=== PATIENT | female | born 1935 | race Caucasian/White ===

== ENCOUNTER 2016-12-25 08:15 | Outpatient (CLI) | payer MEDICARE, OTHER | END 2016-12-25 08:16 | disposition home or self-care (01) | DX: I48.92 Unspecified atrial flutter (principal); R06.00 Dyspnea, unspecified; Z95.4 Presence of other heart-valve replacement; E78.5 Hyperlipidemia, unspecified; N18.9 Chronic kidney disease, unspecified; I12.9 Hypertensive chronic kidney disease with stage 1 through stage 4 chronic kidney disease, or unspecified chronic kidney disease; R07.89 Other chest pain; Z79.01 Long term (current) use of anticoagulants ==

== ENCOUNTER 2017-01-21 12:19 | Emergency (ER) | payer MEDICARE, OTHER ==
[2017-01-21] MEDS ORDERED: DEXAMETHASONE 10 MG/ML VIAL PO STA (13:09)
[2017-01-21] MEDS ORDERED: ALBUTEROL NEB 2.5 MG/3 ML INH STA (13:09)
[2017-01-21] MEDS ORDERED: ALBUTEROL NEB 2.5 MG/3 ML INH ONE (13:18)
[2017-01-21] MEDS ORDERED: CHERRY SYRUP 10 ML UDC PO ONE (13:30)
[2017-01-21] MEDS ORDERED: DEXAMETHASONE 10 MG/ML VIAL ONE (13:30)
[2017-01-21] MEDS ORDERED: CEPHALEXIN 250 MG CAPSULE PO STA (14:07)
[2017-01-21] MEDS ORDERED: CEPHALEXIN 250 MG CAPSULE PO ONE (14:10)
== END 2017-01-21 14:30 | disposition home or self-care (01) ==
DX: J18.9 Pneumonia, unspecified organism (principal); R04.2 Hemoptysis; I10 Essential (primary) hypertension; I48.91 Unspecified atrial fibrillation; I48.92 Unspecified atrial flutter; Z79.01 Long term (current) use of anticoagulants; R01.1 Cardiac murmur, unspecified; Z95.2 Presence of prosthetic heart valve; E78.00 Pure hypercholesterolemia, unspecified; E03.9 Hypothyroidism, unspecified; G47.30 Sleep apnea, unspecified; Z86.73 Personal history of transient ischemic attack (TIA), and cerebral infarction without residual deficits; Z79.82 Long term (current) use of aspirin
CPT/HCPCS: 36415; 71020; 80053; 81001; 83690; 83735; 83880; 85025; 85610; 93005; 93010; 94640; 99283; 99284; A9270; J7613

== ENCOUNTER 2017-02-03 15:26 | Inpatient (IN) | payer MEDICARE, OTHER ==
[2017-02-03] MEDS ORDERED: IOPAMIDOL-300 100 ML VIAL IVP ONE (16:45)
[2017-02-03] MEDS ORDERED: ERTAPENEM 1 GM in SODIUM CHLORIDE 0.9% MINIBAG 100 ML IV STA (17:18)
[2017-02-03] MEDS ORDERED: MORPHINE 2 MG/ML SYRINGE IVP STA (17:41)
[2017-02-03] MEDS ORDERED: MORPHINE 2 MG/ML SYRINGE ONE (17:43)
[2017-02-03] MEDS ORDERED: MORPHINE 2 MG/ML SYRINGE IVP PRN ×2 (17:52→19:59)
[2017-02-03] MEDS ORDERED: ONDANSETRON ODT 4 MG TABLET TL PRN (17:52)
[2017-02-03] MEDS ORDERED: BENZONATATE 100 MG CAPSULE PO PRN (18:04)
[2017-02-03] MEDS ORDERED: ACETAMINOPHEN 650 MG SUPP PR PRN (18:50)
[2017-02-03] MEDS: PANTOPRAZOLE 40 MG VIAL IVP SCH (19:04)
[2017-02-03] MEDS ORDERED: KETOROLAC 30 MG/ML VIAL IVP PRN (19:58)
[2017-02-03] MEDS: methylPREDNISolone SUCCINATE 40 MG/ML VIAL IVP SCH (21:12)
[2017-02-03] MEDS: LATANOPROST 0.005% OPHTH DROPS LEFTEYE SCH (21:13)
[2017-02-03] MEDS: SODIUM CHLORIDE FLUSH 0.9% 10 ML SYRINGE IVP SCH (21:13)
[2017-02-03] MEDS: SOTALOL 80 MG TABLET PO SCH (21:13)
[2017-02-03] MEDS: ACETAMINOPHEN 325 MG TABLET PO PRN (21:14)
[2017-02-04] MEDS ORDERED: SODIUM CHLORIDE 0.9% 500 ML IV ONE (00:27)
[2017-02-04] MEDS ORDERED: SODIUM CHLORIDE 0.9% 500 ML IV SCH ×2 (00:50→21:52)
[2017-02-04] MEDS ORDERED: SODIUM CHLORIDE 0.9% 1,000 ML IV SCH (01:00)
[2017-02-04] MEDS: SODIUM CHLORIDE FLUSH 0.9% 10 ML SYRINGE IVP SCH ×3 (06:36→21:03)
[2017-02-04] MEDS: PANTOPRAZOLE 40 MG VIAL IVP SCH ×2 (06:37→15:24)
[2017-02-04] MEDS ORDERED: MORPHINE 2 MG/ML SYRINGE IVP PRN (07:42)
[2017-02-04] MEDS ORDERED: KETOROLAC 15 MG/ML VIAL IVP PRN (07:47)
[2017-02-04] MEDS: methylPREDNISolone SUCCINATE 40 MG/ML VIAL IVP SCH ×2 (08:56→21:11)
[2017-02-04] MEDS: SOTALOL 80 MG TABLET PO SCH (09:00)
[2017-02-04] MEDS: LEVOTHYROXINE 25 MCG TABLET PO SCH (09:00)
[2017-02-04] MEDS: MULTIVITAMIN TABLET PO SCH (09:00)
[2017-02-04] MEDS: POLYETHYLENE GLYCOL 3350 17 GM PACKET PO SCH (09:00)
[2017-02-04] MEDS ORDERED: TORSEMIDE 20 MG TABLET PO SCH (09:00)
[2017-02-04] MEDS ORDERED: MAGNESIUM ORAL SCH (09:00)
[2017-02-04] MEDS ORDERED: PANTOPRAZOLE 40 MG TABLET PO SCH (09:00)
[2017-02-04] MEDS: ASPIRIN EC 81 MG TABLET PO SCH (09:00)
[2017-02-04] MEDS: SODIUM CHLORIDE 0.45% 1,000 ML IV SCH ×2 (09:01→21:28)
[2017-02-04] MEDS: TORSEMIDE 20 MG TABLET PO SCH (09:34)
[2017-02-04] MEDS ORDERED: WARFARIN 2.5 MG TABLET PO SCH (14:00)
[2017-02-04] MEDS: WARFARIN 1 MG TABLET PO SCH (15:23)
[2017-02-04] MEDS: ERTAPENEM 1 GM in SODIUM CHLORIDE 0.9% MINIBAG 100 ML IV SCH (17:24)
[2017-02-04] MEDS ORDERED: SOTALOL 80 MG TABLET PO SCH (21:00)
[2017-02-04] MEDS: LATANOPROST 0.005% OPHTH DROPS LEFTEYE SCH (21:15)
[2017-02-05] MEDS ORDERED: guaiFENesin 600 MG TABLET PO PRN (01:29)
[2017-02-05] MEDS: ACETAMINOPHEN 325 MG TABLET PO PRN ×2 (01:42→19:17)
[2017-02-05] MEDS: PANTOPRAZOLE 40 MG VIAL IVP SCH ×2 (06:05→17:44)
[2017-02-05] MEDS: SODIUM CHLORIDE FLUSH 0.9% 10 ML SYRINGE IVP SCH ×3 (06:05→22:25)
[2017-02-05] MEDS ORDERED: SOTALOL 80 MG TABLET PO SCH ×2 (07:09→07:10)
[2017-02-05] MEDS: MULTIVITAMIN TABLET PO SCH (09:04)
[2017-02-05] MEDS: LEVOTHYROXINE 25 MCG TABLET PO SCH (09:04)
[2017-02-05] MEDS: TORSEMIDE 20 MG TABLET PO SCH (09:04)
[2017-02-05] MEDS: ASPIRIN EC 81 MG TABLET PO SCH (09:04)
[2017-02-05] MEDS: methylPREDNISolone SUCCINATE 40 MG/ML VIAL IVP SCH ×2 (09:05→21:15)
[2017-02-05] MEDS: POLYETHYLENE GLYCOL 3350 17 GM PACKET PO SCH (09:05)
[2017-02-05] MEDS: SODIUM CHLORIDE 0.45% 1,000 ML IV SCH (09:14)
[2017-02-05] MEDS ORDERED: CARBOXYMETHYLCELLULOSE OPHTH DROPS EACHEYE PRN (10:30)
[2017-02-05] MEDS: CYANOCOBALAMIN 500 MCG TABLET PO SCH (10:59)
[2017-02-05] MEDS: CALCIUM CARBONATE CHEW 500 MG TABLET PO SCH ×2 (10:59→21:15)
[2017-02-05] MEDS: CHOLECALCIFEROL 5,000 UNIT CAPSULE PO SCH (10:59)
[2017-02-05] MEDS: POTASSIUM CHLORIDE 20 MEQ TABLET PO SCH ×2 (11:04→17:44)
[2017-02-05] MEDS ORDERED: WARFARIN 1 MG TABLET PO SCH ×2 (14:00)
[2017-02-05] MEDS: WARFARIN 1 MG TABLET PO SCH (14:18)
[2017-02-05] MEDS: ERTAPENEM 1 GM in SODIUM CHLORIDE 0.9% MINIBAG 100 ML IV SCH (17:44)
[2017-02-05] MEDS: SODIUM CHLORIDE FLUSH 0.9% 10 ML SYRINGE IVP PRN ×2 (17:44→21:15)
[2017-02-05] MEDS: LATANOPROST 0.005% OPHTH DROPS LEFTEYE SCH (21:15)
[2017-02-05] MEDS: SOTALOL 80 MG TABLET PO SCH (21:15)
[2017-02-06] MEDS: SODIUM CHLORIDE FLUSH 0.9% 10 ML SYRINGE IVP SCH ×2 (06:09→14:21)
[2017-02-06] MEDS: PANTOPRAZOLE 40 MG VIAL IVP SCH (06:10)
[2017-02-06] MEDS ORDERED: LEVOTHYROXINE 25 MCG TABLET PO SCH (07:00)
[2017-02-06] MEDS ORDERED: TORSEMIDE 20 MG TABLET PO SCH (09:00)
[2017-02-06] MEDS ORDERED: SODIUM CHLORIDE 0.45% 1,000 ML IV SCH (09:00)
[2017-02-06] MEDS ORDERED: predniSONE 20 MG TABLET PO SCH (09:00)
[2017-02-06] MEDS: ASPIRIN EC 81 MG TABLET PO SCH (09:27)
[2017-02-06] MEDS: CALCIUM CARBONATE CHEW 500 MG TABLET PO SCH (09:27)
[2017-02-06] MEDS: POTASSIUM CHLORIDE 20 MEQ TABLET PO SCH ×2 (09:27→11:42)
[2017-02-06] MEDS: CYANOCOBALAMIN 500 MCG TABLET PO SCH (09:28)
[2017-02-06] MEDS: MULTIVITAMIN TABLET PO SCH (09:28)
[2017-02-06] MEDS: POLYETHYLENE GLYCOL 3350 17 GM PACKET PO SCH (09:28)
[2017-02-06] MEDS: CHOLECALCIFEROL 5,000 UNIT CAPSULE PO SCH (09:28)
[2017-02-06] MEDS: SOTALOL 80 MG TABLET PO SCH (09:29)
[2017-02-06] MEDS ORDERED: ERTAPENEM 1 GM in SODIUM CHLORIDE 0.9% MINIBAG 100 ML IV SCH (13:55)
[2017-02-06] MEDS ORDERED: WARFARIN 1 MG TABLET PO SCH (14:00)
[2017-02-06] MEDS ORDERED: guaiFENesin 600 MG TABLET PO SCH (14:00)
[2017-02-07] MEDS ORDERED: WARFARIN 1 MG TABLET PO SCH (14:00)
== END 2017-02-06 16:10 | disposition home or self-care (01) | DRG 193 ==
PROC: 02HV33Z Insertion of Infusion Device into Superior Vena Cava, Percutaneous Approach (ICD-10-PCS; principal; 2017-02-04)
PROC: B548ZZA Ultrasonography of Superior Vena Cava, Guidance (ICD-10-PCS; 2017-02-04)
DX: J18.9 Pneumonia, unspecified organism (principal); I10 Essential (primary) hypertension; J85.1 Abscess of lung with pneumonia; Z79.82 Long term (current) use of aspirin; I48.91 Unspecified atrial fibrillation; Z95.3 Presence of xenogenic heart valve; Z88.0 Allergy status to penicillin; I11.0 Hypertensive heart disease with heart failure; I50.9 Heart failure, unspecified; E03.9 Hypothyroidism, unspecified; G47.33 Obstructive sleep apnea (adult) (pediatric); Z79.01 Long term (current) use of anticoagulants; Z66 Do not resuscitate; I95.2 Hypotension due to drugs; T40.2X5A Adverse effect of other opioids, initial encounter; Z86.73 Personal history of transient ischemic attack (TIA), and cerebral infarction without residual deficits; E78.00 Pure hypercholesterolemia, unspecified; Z90.710 Acquired absence of both cervix and uterus; Z96.649 Presence of unspecified artificial hip joint; Z96.659 Presence of unspecified artificial knee joint

== ENCOUNTER 2017-02-12 15:14 | Outpatient (CLI) | payer MEDICARE, OTHER ==
[2017-02-12] MEDS ORDERED: IOPAMIDOL-300 100 ML VIAL IVP ONE (16:18)
--- NOTE | 2017-02-12 17:11 | CT Preliminary Report ---
Exam: CT Chest W/ IMPRESSION: 1. Markedly improved aeration right lower lobe now with subsegmental residual within the anterior bas ilar segment right lower lobe. Appearance of the current findings and the positive response to antibi otic therapy highly favors benign inflammatory process rather than underlying malignancy. Follow-up c hest CT in 3 months recommended to confirm complete resolution. 2. Decreasing mild cardiomegaly. 3. Decreasing mild mediastinal adenopathy. 4. Marked gastroesophageal reflux. [facility] The call report notification system was initiated by Dr. Eliane Mart at 16:58 hrs on 02/12/17. The above findings were discussed with Dr. Norah Mejia by Dr. Eliane Mart at 17:09 hrs on 02/12/17 . SITE ID: [id number]
--- NOTE | 2017-02-12 17:59 | CT Report ---
EXAM: CT CHEST EXAM DATE: 02/12/2017 04:12 PM. CLINICAL HISTORY: Right lower lobe abscess follow-up. Recurrent hemoptysis. COMPARISONS: 02/03/2017. TECHNIQUE: Routine helical CT imaging was performed through the chest. IV contrast: 100 mL Isovue-300. Reconstru ctions: Coronal and sagittal. In accordance with CT protocol optimization, one or more of the following dose reduction techniques w ere utilized for this exam: automated exposure control, adjustment of mA and/or KV based on patient s ize, or use of iterative reconstructive technique. FINDINGS: Lungs/Pleura: Dramatic interval decrease in the extensive inflammatory changes in the right lower lob e. Currently, the central uniform fluid or cystic region measures 17 mm in maximum dimension, previously 27 mm. The surrounding rim of inflammatory changes measures between 8-15 mm. Adjacent airways are un remarkable. The rest of the lungs are clear. No effusion, vascular congestion and pneumothorax. Mediastinum: Decreasing cardiomegaly, remaining mildly enlarged. Remote sternotomy mitral valve repla cement. Decreasing number and caliber of pretracheal and subcarinal mildly enlarged lymph nodes. Moderate hiatal hernia. Fluid is seen within the esophagus up to the level of the aortic arch. Thoracic aorta of normal caliber without dissection. No filling defects seen within the pulmonary art erial vessels. Bones: Multilevel degenerative changes throughout the scoliotic spine. Visualized Abdomen: 1.5 cm cyst left kidney. Other: Interval placement of a right PICC line with the tip at the cavoatrial junction. IMPRESSION: 1. Markedly improved aeration right lower lobe now with subsegmental residua within the anterior basi lar segment right lower lobe. Appearance of the current findings and the positive response to antibio tic therapy highly favors benign inflammatory process rather than underlying malignancy. Follow-up est CT in 3 months recommended to confirm complete resolution and to exclude underlying lesion. 2. Decreasing mild cardiomegaly. 3. Decreasing mild mediastinal adenopathy. 4. Marked gastroesophageal reflux. [facility] The call report notification system was initiated by Dr. Eliane Mart at 16:58 hrs on 02/12/17. The above findings were discussed with Dr. Norah Mejia by Dr. Eliane Mart at 17:09 hrs on 02/12/17 . Referring Provider Line: [phone] SITE ID: [id number]
== END 2017-02-12 15:15 | disposition home or self-care (01) ==
LOC: DI 15:14
PROVIDERS: ATTEND Family Medicine
DX: J18.9 Pneumonia, unspecified organism (principal); J85.2 Abscess of lung without pneumonia; I51.7 Cardiomegaly; R59.0 Localized enlarged lymph nodes; K21.9 Gastro-esophageal reflux disease without esophagitis
CPT/HCPCS: 71260; Q9967

== ENCOUNTER 2017-03-08 10:44 | Outpatient (CLI) | payer MEDICARE, OTHER | END 2017-03-08 10:45 | disposition home or self-care (01) | DX: J85.2 Abscess of lung without pneumonia (principal); J18.9 Pneumonia, unspecified organism ==

== ENCOUNTER 2017-03-15 14:56 | Outpatient (CLI) | payer MEDICARE, OTHER ==
[2017-03-15] MEDS ORDERED: IOPAMIDOL-300 100 ML VIAL IVP ONE (15:58)
== END 2017-03-15 14:57 | disposition home or self-care (01) ==
DX: J85.2 Abscess of lung without pneumonia (principal); R59.1 Generalized enlarged lymph nodes; N28.89 Other specified disorders of kidney and ureter
CPT/HCPCS: 36415; 71260; 82565; Q9967

== ENCOUNTER 2017-03-21 11:24 | Outpatient (CLI) | payer MEDICARE, OTHER | END 2017-03-21 11:25 | disposition home or self-care (01) | DX: I48.92 Unspecified atrial flutter (principal); R06.00 Dyspnea, unspecified; Z95.4 Presence of other heart-valve replacement; I10 Essential (primary) hypertension; E78.5 Hyperlipidemia, unspecified; N18.9 Chronic kidney disease, unspecified; R07.89 Other chest pain; R60.0 Localized edema; I49.3 Ventricular premature depolarization ==

== ENCOUNTER 2017-03-29 10:13 | Outpatient (CLI) | payer MEDICARE, OTHER | END 2017-03-29 10:14 | disposition home or self-care (01) | DX: Z79.01 Long term (current) use of anticoagulants (principal) ==

== ENCOUNTER 2017-04-05 12:40 | Outpatient (CLI) | payer MEDICARE, OTHER | END 2017-04-05 12:41 | disposition home or self-care (01) | DX: Z79.01 Long term (current) use of anticoagulants (principal) ==

== ENCOUNTER 2017-04-17 19:40 | Outpatient (CLI) | payer MEDICARE, OTHER | END 2017-04-17 19:41 | disposition critical access hospital (66) | LOC: EMS 19:40 | PROVIDERS: ATTEND Surgery | DX: R07.9 Chest pain, unspecified (principal); H53.9 Unspecified visual disturbance | CPT/HCPCS: A0425; A0429 ==

== ENCOUNTER 2017-04-17 19:44 | Emergency (ER) | payer MEDICARE, OTHER ==
--- NOTE | 2017-04-17 20:34 | ED Physician Documentation ---
History of Present Illness - Stated complaint Stated Complaint: BLURRED VISION - Chief complaint Chief Complaint: General - History obtained from History obtained from: Patient - History of Present Illness Timing: Enter time (18:30), Today Pain level max: 2 Pain level now: 0 Radiates to: pain did not radiate Improved by: no ameliorating factors Worsened by: no exacerbating factors - Additonal information Additional information: while preparing dinner this evening, sudden onset left chest pain at 6:30 PM, lasted 2-3 minutes and then completely resolved. She then developed sudden onset of bilateral blurry vision at 7:00 PM, lasted 4-5 minutes and also has completely resolved. Patient is asymptomatic on arrival. Review of Systems Eyes: reports: Decreased vision. denies: Loss of vision, Photophobia Cardiac: reports: Chest pain / pressure. denies: Palpitations, Pedal edema, Calf pain Respiratory: reports: Reviewed and negative GI: reports: Reviewed and negative Neurologic: reports: Reviewed and negative PD PAST MEDICAL HISTORY - Past Medical History Cardiovascular: Hypertension, High cholesterol, Atrial flutter, Atrial fibrillation, Murmur, Valve disorder, Other Respiratory: Sleep apnea, CPAP use Neuro: TIA Endocrine/Autoimmune: HyPOthyroidism GI: None : None HEENT: Chronic hearing loss Psych: None Musculoskeletal: None Derm: None - Past Surgical History Past Surgical History: Yes General: Appendectomy Ortho: Hip replacement, Knee replacement /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, Oophrectomy, Other Cardiovascular: Valve replacement HEENT: Cataracts, Tonsil/Adenoidectomy - Present Medications Home Medications: Ambulatory Orders Medication Instructions Recorded Confirmed Magnesium 250 mg PO DAILY 01/05/15 04/17/17 Nitroglycerin 0.4 mg SL Q5M PRN 01/05/15 04/17/17 Pantoprazole [Protonix] 40 mg ORAL DAILY 01/05/15 04/17/17 Sotalol [Betapace] 80 mg PO BID 01/05/15 04/17/17 Aspirin [Aspir-Low] 81 mg PO DAILY 04/12/16 04/17/17 Latanoprost 0.005% Ophth Drops 1 drop LEFTEYE QPM 04/12/16 04/17/17 [Xalatan Ophth Drops] Multivitamin [Theragran] 1 each PO DAILY 04/12/16 04/17/17 Calcium Carbonate [Tums (Calcium 1,000 mg PO BID 02/04/17 04/17/17 Carbonate 500mg)] Cholecalciferol (Vitamin D3) 5,000 units PO DAILY 02/04/17 04/17/17 [Vitamin D3] Cyanocobalamin (Vitamin B-12) 2,500 mcg PO DAILY 02/04/17 04/17/17 [Vitamin B-12] Levothyroxine Sodium 25 mcg PO DAILY 02/04/17 04/17/17 Losartan Potassium 25 mg PO DAILY 02/04/17 04/17/17 Potassium Chloride 20 meq PO TIDWM 02/04/17 04/17/17 Torsemide 60 mg PO DAILY 60 Days 02/06/17 04/17/17 Acetaminophen [Tylenol Extra 500 mg PO PRN PRN 04/17/17 04/17/17 Strength] Warfarin Sodium [Coumadin] 2 mg PO DAILY 04/17/17 04/17/17 Warfarin Sodium [Coumadin] 3 mg PO DAILY 04/17/17 04/17/17 traMADol [Ultram] 50 mg PO PRN PRN 04/17/17 04/17/17 - Allergies Allergies/Adverse Reactions: Allergies Allergy/AdvReac Type Severity Reaction Status Date / Time amiodarone AdvReac Unknown Verified 04/17/17 19:50 clonidine AdvReac Unknown Verified 04/17/17 19:50 disopyramide phosphate * AdvReac Unknown Verified 04/17/17 19:50 [From Norpace] gadopentetate dimeglumine * AdvReac Unknown Verified 04/17/17 19:50 [From Magnevist] lisinopril AdvReac Unknown Verified 04/17/17 19:50 meperidine HCl * AdvReac Unknown Verified 04/17/17 19:50 [From Demerol] Penicillins AdvReac Unknown Verified 04/17/17 19:50 Sulfa (Sulfonamide AdvReac Unknown Verified 04/17/17 19:50 Antibiotics) - Social History Does the pt smoke?: No Smoking Status: Never smoker Does the pt drink ETOH?: No Does the pt have substance abuse?: No - Immunizations Immunizations are current?: Yes PD ED PE NORMAL - Vitals Vital signs reviewed: Yes - General General: Alert and oriented X 3, No acute distress, Well developed/nourished - HEENT HEENT: PERRL, EOMI, Moist mucous membranes - Neck Neck: Supple, no meningeal sign - Cardiac Cardiac: RRR - Respiratory Respiratory: No respiratory distress, Clear bilaterally - Derm Derm: Normal color, Warm and dry - Extremities Extremities: No edema - Neuro Neuro: Alert and oriented X 3, compensation expert 2-12 intact, No motor deficit, No sensory deficit, Normal speech PD ED PE EXPANDED - Cardiac Cardiac: Murmur Present (3/6 ESTEFANY greatest at cardiac base) - GCS Eye Opening: Spontaneous Motor: Obeys Commands Verbal: Oriented Total: 15 Results - Vitals Vitals: Oxygen O2 Source [] Nasal cannula O2 Source [] Room air O2 Source Room air - EKG (time done) No standard instances Rate: Rate (enter#) (69) Rhythm: Atrial fibrillation QRS: LVH Ischemia: Normal ST segments - Labs Labs: Laboratory Tests 04/17/17 04/17/17 04/17/17 21:44 21:44 21:44 WBC 7.3 RBC 4.14 L Hgb 11.7 L Hct 36.1 L MCV 87.2 MCH 28.2 MCHC 32.4 RDW 15.1 H Plt Count 258 MPV 8.1 Neut # 6.5 Lymph # 0.6 L [place] # 0.1 Eos # 0.0 Baso # 0.0 Absolute Nucleated RBC 0.00 Nucleated RBCs 0.0 PT 31.9 H INR 2.8 H APTT 36.8 H Sodium 140 Potassium 4.1 Chloride 103 Carbon Dioxide 28 Anion Gap 9.0 BUN 36 H Creatinine 1.2 H Estimated GFR (MDRD) 43 L Glucose 136 H Calcium 9.8 Troponin I 04/17/17 21:44 WBC RBC Hgb Hct MCV MCH MCHC RDW Plt Count MPV Neut # Lymph # [place] # Eos # Baso # Absolute Nucleated RBC Nucleated RBCs PT INR APTT Sodium Potassium Chloride Carbon Dioxide Anion Gap BUN Creatinine Estimated GFR (MDRD) Glucose Calcium Troponin I < 0.04 - Rads (name of study) chest xray Radiology: Prelim report reviewed, See rad report CT head Radiology: Prelim report reviewed, See rad report PD MEDICAL DECISION MAKING - ED course Complexity details: reviewed results, re-evaluated patient, considered differential, d/w patient Departure - Departure Disposition: 01 Home, Self Care Clinical Impression: Blurry vision, bilateral Chest pain Qualifiers: Chest pain type: unspecified Qualified Code(s): R07.9 - Chest pain, unspecified Condition: Good Instructions: ED Blurred Vision, ED Chest Pain Atypical Unkn Cause Follow-Up: Teri Mejia DO [Primary Care Provider] - Discharge Date/Time: 04/17/17 23:10
--- NOTE | 2017-04-17 21:37 | CT Preliminary Report ---
Exam: CT Head W/O IMPRESSION: Generalized age-related cortical atrophic changes without evidence of acute intracranial abnormality. [facility] SITE ID: [id number]
--- NOTE | 2017-04-17 21:39 | CT Report ---
EXAM: CT HEAD EXAM DATE: 04/17/2017 09:11 PM. CLINICAL HISTORY: Visual changes, sudden onset. COMPARISON: 12/26/2006. TECHNIQUE: Multiaxial CT images were obtained from the foramen magnum to the vertex. IV contrast: Non e. Reformats: Coronal. In accordance with CT protocol optimization, one or more of the following dose reduction techniques w ere utilized for this exam: automated exposure control, adjustment of mA and/or KV based on patient s ize, or use of iterative reconstructive technique. FINDINGS: Parenchyma: No intraparenchymal hemorrhage. No evidence of mass, midline shift or CT findings of acut e infarction. Diego-white differentiation is distinct. Diffuse chronic microangiopathic white matter c hanges are evident. Extraaxial Spaces: There is generalized volume loss. No subdural or epidural collections identified. Ventricles: The ventricles and cortical sulci are enlarged, consistent with age-related tissue loss. Sinuses: Imaged paranasal sinuses, orbits, and mastoids show no significant abnormality. Bones: No evidence of fracture or calvarial defect. Other: None. IMPRESSION: Generalized age-related cortical atrophic changes without evidence of acute intracranial abnormality. [facility] Referring Provider Line: [phone] SITE ID: [id number]
--- NOTE | 2017-04-17 21:58 | XRAY Preliminary Report ---
Exam: XR Chest 2 View PA/LAT IMPRESSION: 1. Cardiomegaly with pulmonary cephalization. Atherosclerosis. [facility] SITE ID: [id number]
--- NOTE | 2017-04-17 22:00 | XRAY Report ---
EXAM: CHEST RADIOGRAPHY EXAM DATE: 04/17/2017 08:56 PM. CLINICAL HISTORY: Chest pain. COMPARISON: Chest x-ray 03/08/2017. TECHNIQUE: 2 views. FINDINGS: Lungs/Pleura: No pleural effusion or pneumothorax. Pulmonary cephalization. Interval improvement in p reviously noted right basilar airspace disease. Mediastinum: Cardiomegaly status post valvular surgery, likely mitral. Atherosclerosis with aortic to rtuosity. Other: Status post median sternotomy. IMPRESSION: 1. Cardiomegaly with pulmonary cephalization. Atherosclerosis. [facility] Referring Provider Line: [phone] SITE ID: [id number]
[2017-04-17 22:01] LABS: BASOPHILS % (AUTO) 0.6 %; EOSINOPHILS % (AUTO) 0.2 %; HCT - HEMATOCRIT 36.1 % (37.0-47.0); HGB - HEMOGLOBIN 11.7 g/dL (12.0-16.0); LYMPHOCYTES # (AUTO) 0.6 10^3/uL (1.5-3.5); LYMPHOCYTES % (AUTO) 8.4 %; MEAN CORPUSCULAR HEMOGLOBIN 28.2 pg (27.0-31.0); MEAN CORPUSCULAR HGB CONC 32.4 g/dL (32.0-36.0); MEAN CORPUSCULAR VOLUME 87.2 fL (81.0-99.0); MEAN PLATELET VOLUME 8.1 fL (7.9-10.8); MONOCYTES # (AUTO) 0.1 10^3/uL (0.0-1.0); MONOCYTES % (AUTO) 1.6 %; NEUTROPHILS # (AUTO) 6.5 10^3/uL (1.5-6.6); NEUTROPHILS % (AUTO) 89.2 %; RED BLOOD COUNT 4.14 10^6/uL (4.20-5.40); RED CELL DISTRIBUTION WIDTH 15.1 % (12.0-15.0); UNCORRECTED WHITE BLOOD COUNT 7.3 x10^3/uL; WHITE BLOOD COUNT 7.3 x10^3/uL (4.8-10.8)
[2017-04-17 22:08] LABS: CALCIUM 9.8 mg/dL (8.5-10.3); CREATININE 1.2 mg/dL (0.4-1.0); POTASSIUM 4.1 mmol/L (3.5-5.0)
[2017-04-17 22:09] LABS: INR 2.8 (0.8-1.2); PT - PROTHROMBIN TIME 31.9 secs (9.9-12.6)
[2017-04-17 22:16] LABS: PARTIAL THROMBOPLASTIN TIME 36.8 secs (24.9-33.3)
[2017-04-17 23:10] VITALS: BP 166/82
== END 2017-04-17 23:10 | disposition home or self-care (01) ==
LOC: EDUNIT# → ED 19:44
DX: R07.9 Chest pain, unspecified (principal); H53.8 Other visual disturbances; I48.91 Unspecified atrial fibrillation; Z95.2 Presence of prosthetic heart valve; Z79.01 Long term (current) use of anticoagulants; Z79.82 Long term (current) use of aspirin; I10 Essential (primary) hypertension
CPT/HCPCS: 36415; 70450; 71020; 80048; 84484; 85025; 85610; 85730; 93005; 93010; 99283; 99284

== ENCOUNTER 2017-04-19 10:39 | Outpatient (CLI) | payer MEDICARE, OTHER ==
[2017-04-19 20:02] LABS: THYROID STIMULATING HORMONE 0.95 uIU/mL (0.34-5.60)
== END 2017-04-19 10:40 | disposition home or self-care (01) ==
LOC: LAB.WCP 10:39
PROVIDERS: ATTEND Family Medicine
DX: G62.9 Polyneuropathy, unspecified (principal); E03.9 Hypothyroidism, unspecified
CPT/HCPCS: 36415; 82607; 84443; 85651

== ENCOUNTER 2017-04-26 15:14 | Outpatient (CLI) | payer MEDICARE, OTHER ==
--- NOTE | 2017-04-27 22:04 | Ultrasound Report ---
EXAM: CAROTID DOPPLER ULTRASOUND EXAM DATE: 04/26/2017 05:22 PM. CLINICAL HISTORY: Blurred vision. TIA. COMPARISON: None. TECHNIQUE: Real-time sonographic vascular imaging was performed by the campus recruiting intern through the caroti d arterial system with a linear transducer utilizing color-flow, Doppler flow and spectral analysis. Multiple sales representative education courses static images were saved for review. FINDINGS: Echogenic plaque at the carotid bifurcations bilaterally without significant stenosis. Ante grade flow in both vertebral arteries. Right: RCCA Prox: PSV 103 cm/sec. RCCA Dist: PSV 86 cm/sec, EDV 15 cm/sec. RECA: PSV 109 cm/sec. R Bulb: PSV 61 cm/sec, EDV 11 cm/sec, ICA/CCA ratio 0.70. DELBERT Prox: PSV 73 cm/sec, EDV 14 cm/sec, ICA/CCA ratio 0.84. DELBERT Mid: PSV 72 cm/sec, EDV 20 cm/sec, ICA/CCA ratio 0.83. DELBERT Dist: PSV 101 cm/sec, EDV 31 cm/sec, ICA/CCA ratio 1.17. RVA: PSV 51 cm/sec. RVA flow direction: Antegrade. Left: LCCA Prox: PSV 78 cm/sec. LCCA Dist: PSV 75 cm/sec, EDV 16 cm/sec. LECA: PSV 155 cm/sec. L Bulb: PSV 103 cm/sec, EDV 20 cm/sec, ICA/CCA ratio 1.37. LICA Prox: PSV 106 cm/sec, EDV 20 cm/sec, ICA/CCA ratio 1.41. LICA Mid: PSV 107 cm/sec, EDV 18 cm/sec, ICA/CCA ratio 1.42. LICA Dist: PSV 94 cm/sec, EDV 18 cm/sec, ICA/CCA ratio 1.25. LVA: PSV 51 cm/sec. LVA flow direction: Antegrade. Other: None. IMPRESSION: 1. Bilateral carotid plaquing without significant stenosis. 2. Antegrade flow in both vertebral arteries. Validated velocity measurements with angiographic measurements and velocity criteria are extrapolated from diameter data as defined by the Society of Radiologists in Ultrasound Consensus Conference Radi ology 2003; 229;340-346. [facility] Referring Provider Line: [phone] SITE ID: [id number]
== END 2017-04-26 15:15 | disposition home or self-care (01) ==
LOC: DI 15:14
PROVIDERS: ATTEND Family Medicine
DX: I65.23 Occlusion and stenosis of bilateral carotid arteries (principal)
CPT/HCPCS: 93880

== ENCOUNTER 2017-04-30 09:30 | Outpatient (CLI) | payer MEDICARE, OTHER ==
--- NOTE | 2017-04-30 12:14 | MRI Report ---
MRI BRAIN WITHOUT CONTRAST INDICATION: 82-year-old female with episodes of blurred vision. Concern for TIAs. History of atrial f ibrillation. TECHNIQUE: 1. T1 sagittal and fat-saturated coronal. 2. Axial T1 3-D MP RAGE, FLAIR, T2, T2* and DWI. COMPARISON: Head CT 04/17/2017 and brain MRI 12/27/2006. FINDINGS: There is generalized prominence of the cerebral cortical sulci and cerebellar folia with associated, mild ex vacuo ventriculomegaly. These changes are considered well within normal limits for stated age . 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 Dilated perivascular spaces are demonstra slava in the basal ganglia regions bilaterally. There is a moderate amount of white matter disease in t he supratentorial brain, manifested as focal and confluent T2 hyperintensities are scattered througho ut the periventricular, deep, and subcortical white matter bilaterally. There is involvement of the s ubinsular regions and posterior limb of right internal capsule as well. Minor, patchy T2 hyperintensi ties are seen in the hiro. The white matter changes are nonspecific but most likely represent chronic microangiopathy. Multiple small T2 hyperintensities have developed in the cerebellar hemispheres, since the MRI study of 12/27/2006. These most likely represent the sequela of remote, embolic type ischemic infarctions. The left vertebral artery is hypoplastic and small size makes assessment difficult. Otherwise, there appear to be flow voids for the main intracranial arteries. No abnormal diffusion restriction is demo nstrated. No evidence of acute or chronic hemorrhage on T2*GRE sequence. No abnormal extraaxial fluid collection. No mass effect or midline shift. Limited assessment of the orbits reveals no gross pathology. Changes of previous ocular lens extracti on are noted bilaterally. There is minor mucosal thickening in a few ethmoid air cells. The paranasal sinuses are otherwise radha ar. No significant mastoid or middle ear effusion is demonstrated. IMPRESSION: 1. A moderate amount of white matter disease is identified as described, likely representing chronic microangiopathy. 2. Multiple small (subcentimeter) foci of T2 hyperintensity are identified, scattered throughout the cerebellar hemispheres bilaterally, likely representing the sequela of remote, embolic-type ischemic infarctions. 3. No other significant intracranial findings on this unenhanced brain MRI. In particular, there is n o evidence of recent infarction. Referring Provider Line: [phone] SITE ID: [id number]
== END 2017-04-30 09:31 | disposition home or self-care (01) ==
LOC: DI 09:30
PROVIDERS: ATTEND Family Medicine
DX: R90.82 White matter disease, unspecified (principal); I48.0 Paroxysmal atrial fibrillation
CPT/HCPCS: 70551

== ENCOUNTER 2017-05-29 09:40 | Outpatient (CLI) | payer MEDICARE, OTHER | END 2017-05-29 09:41 | disposition home or self-care (01) | LOC: LAB 09:40 | PROVIDERS: ATTEND Family Medicine | DX: Z79.01 Long term (current) use of anticoagulants (principal) | CPT/HCPCS: 85610 ==

== ENCOUNTER 2017-06-14 10:49 | Outpatient (CLI) | payer MEDICARE, OTHER ==
--- NOTE | 2017-06-14 16:35 | CT Report ---
CT CHEST WITHOUT CONTRAST: 06/14/2017 CLINICAL INDICATION: Pulmonary abscess followup. COMPARISON: 03/15/2017, 02/12/2017 TECHNIQUE: Axial CT images of the chest were obtained without intravenous contrast. In accordance with CT protocol optimization, one or more of the following dose reduction techniques w ere utilized for this exam: automated exposure control, adjustment of mA and/or KV based on patient size, or use of iterative reconstructive technique. FINDINGS: The heart and great vessels demonstrate atherosclerotic calcifications. Hiatal hernia is stable. The previously noted density in the anterior right lower lobe has completely resolved. No n ew infiltrate, effusion, or pneumothorax is present. Osseous structures demonstrate degenerative ryann nges and postsurgical changes. Limited evaluation of the upper abdominal structures is unremarkable. IMPRESSION: COMPLETE RESOLUTION OF RIGHT LOWER LOBE PULMONARY ABSCESS. STABLE POSTOPERATIVE CHANGES . JOB #: [id number] EXT JOB #:[id number]
== END 2017-06-14 10:50 | disposition home or self-care (01) ==
LOC: DI 10:49
PROVIDERS: ATTEND Family Medicine
DX: J85.2 Abscess of lung without pneumonia (principal); Z79.01 Long term (current) use of anticoagulants
CPT/HCPCS: 71250; 85610

== ENCOUNTER 2017-07-05 14:26 | Outpatient (CLI) | payer MEDICARE, OTHER | END 2017-07-05 14:27 | disposition home or self-care (01) | LOC: LAB 14:26 | PROVIDERS: ATTEND Family Medicine | DX: Z79.01 Long term (current) use of anticoagulants (principal) | CPT/HCPCS: 85610 ==

== ENCOUNTER 2017-08-12 09:27 | Outpatient (CLI) | payer MEDICARE, OTHER ==
[2017-08-12 10:13] LABS: CALCIUM 9.9 mg/dL (8.5-10.3); CREATININE 1.1 mg/dL (0.4-1.0); POTASSIUM 3.9 mmol/L (3.5-5.0)
== END 2017-08-12 09:28 | disposition home or self-care (01) ==
LOC: LAB 09:27
PROVIDERS: ATTEND Family Medicine
DX: I48.0 Paroxysmal atrial fibrillation (principal)
CPT/HCPCS: 36415; 80048

== ENCOUNTER 2017-09-20 10:41 | Outpatient (CLI) | payer MEDICARE, OTHER ==
--- NOTE | 2017-09-24 14:55 | DEXA Report ---
DEXA SCAN: 09/20/2017 CLINICAL INDICATION: Postmenopausal. TECHNIQUE: Dual energy x-ray absorptiometry (DXA) was performed on a [employer] system. Regions measured are the AP spine, femoral neck, and, if needed, forearm. COMPARISON: None. In accordance with the International Society for Clinical Densitometry (ISCD) guidelines, data from previous exams may be reanalyzed using current recommendations and techniques. This is done to allow a more accurate basis for comparison with the current study. FINDINGS Data for the lumbar spine is as follows: REGION BMD (g/cm/cm) T-SCORE Z-SCORE L1 1.038 -0.8 0.9 L2 1.079 -1.0 0.7 L3 1.096 -0.9 0.8 L4 1.031 -1.4 0.3 TOTAL 1.058 -1.0 0.7 NOTE: All evaluable vertebrae are used for classification. Data for the hip is as follows: REGION BMD (g/cm/cm) T-SCORE Z-SCORE Neck 0.649 -2.8 -0.7 TOTAL 0.735 -2.2 -0.2 NOTE: The femoral neck or total proximal femur, whichever is lowest, is used for classification. IMPRESSION: THE WHO CLASSIFICATION BASED ON THE INTERNATIONAL REFERENCE STANDARD IS OSTEOPOROSIS (REFERENCE LEFT FEMORAL NECK). FRACTURE RISK IS HIGH. RECOMMENDATION: Patients with diagnosis of osteoporosis or osteopenia should have regular bone mineral density assessment. For those eligible for Medicare, routine testing is allowed once every 2 years. Testing frequency can be increased for patients who have rapidly progressing disease or for those who are receiving medical therapy to restore bone mass. COMMENT: World Health Organization (WHO) definitions for osteoporosis and osteopenia: NORMAL BMD: T-score at -1.0 or higher, fracture risk is low. OSTEOPENIA BMD: T-score between -1.0 and -2.5, fracture risk is increased. OSTEOPOROSIS BMD: T-score at -2.5 or lower, fracture risk high. National Osteoporosis Foundation recommends: 1. Obtain adequate dietary calcium (at least 1200 mg per day) and vitamin D (400 -800 international units per day). 2. Participate, as appropriate, in regular weightbearing and muscle- strengthening exercise. 3. Avoid tobacco use and reduce alcohol and caffeine intake. 4. For more detailed information see the website at www.NOF.org. MTDD
== END 2017-09-20 10:42 | disposition home or self-care (01) ==
LOC: DI 10:41
PROVIDERS: ATTEND Family Medicine
DX: M81.0 Age-related osteoporosis without current pathological fracture (principal)
CPT/HCPCS: 77080

== ENCOUNTER 2017-09-30 08:39 | Outpatient (CLI) | payer MEDICARE, OTHER ==
[2017-09-30 09:34] LABS: ALBUMIN/GLOBULIN RATIO 1.2 (1.0-2.2); BILIRUBIN,TOTAL 0.7 mg/dL (0.2-1.0); BUN - BLOOD UREA NITROGEN 27 mg/dL (6-20); CALCIUM 9.8 mg/dL (8.5-10.3); CARBON DIOXIDE - CO2 28 mmol/L (21-32); CHLORIDE 102 mmol/L (101-111); CHOL/HDL RATIO 3.5 (<4.4); CHOLESTEROL 211 mg/dL; CREATININE 1.2 mg/dL (0.4-1.0); GFR - MDRD 43 (>89); GLUCOSE 99 mg/dL (70-100); HDL CHOLESTEROL 60 mg/dL; LDL/HDL RATIO 2.1 (<4.4); MAGNESIUM 2.3 mg/dL (1.7-2.8); POTASSIUM 3.9 mmol/L (3.5-5.0); SODIUM 140 mmol/L (135-145); TOTAL PROTEIN 7.3 g/dL (6.7-8.2); TRIGLYCERIDES 130 mg/dL; VLDL CHOLESTEROL 26 mg/dL
== END 2017-09-30 08:40 | disposition home or self-care (01) ==
LOC: LAB 08:39
PROVIDERS: ATTEND Specialist
DX: I48.92 Unspecified atrial flutter (principal); R06.00 Dyspnea, unspecified; Z95.4 Presence of other heart-valve replacement; I10 Essential (primary) hypertension; E78.5 Hyperlipidemia, unspecified; N18.9 Chronic kidney disease, unspecified; R07.89 Other chest pain; R60.0 Localized edema; I49.3 Ventricular premature depolarization
CPT/HCPCS: 36415; 80053; 80061; 83735; 85610

== ENCOUNTER 2017-10-16 11:25 | Outpatient (CLI) | payer MEDICARE, OTHER | END 2017-10-16 11:26 | disposition home or self-care (01) | LOC: LAB 11:25 | PROVIDERS: ATTEND Family Medicine | DX: Z79.01 Long term (current) use of anticoagulants (principal) | CPT/HCPCS: 85610 ==

== ENCOUNTER 2017-10-25 11:24 | Outpatient (CLI) | payer MEDICARE, OTHER ==
[2017-10-25 12:05] LABS: CALCIUM 9.8 mg/dL (8.5-10.3); CREATININE 1.3 mg/dL (0.4-1.0); MAGNESIUM 2.2 mg/dL (1.7-2.8); POTASSIUM 4.1 mmol/L (3.5-5.0)
== END 2017-10-25 11:25 | disposition home or self-care (01) ==
LOC: LAB 11:24
PROVIDERS: ATTEND Specialist
DX: I10 Essential (primary) hypertension (principal)
CPT/HCPCS: 36415; 80048; 83735

== ENCOUNTER 2017-11-28 14:09 | Outpatient (CLI) | payer MEDICARE, OTHER | END 2017-11-28 14:10 | disposition home or self-care (01) | LOC: LAB 14:09 | PROVIDERS: ATTEND Family Medicine | DX: Z79.01 Long term (current) use of anticoagulants (principal) | CPT/HCPCS: 85610 ==

== ENCOUNTER 2018-01-23 11:41 | Outpatient (CLI) | payer MEDICARE, OTHER | END 2018-01-23 11:42 | disposition home or self-care (01) | LOC: LAB 11:41 | PROVIDERS: ATTEND Family Medicine | DX: Z79.01 Long term (current) use of anticoagulants (principal) | CPT/HCPCS: 85610 ==

== ENCOUNTER 2018-03-21 10:27 | Outpatient (CLI) | payer MEDICARE, OTHER | END 2018-03-21 10:28 | disposition home or self-care (01) | LOC: LAB 10:27 | PROVIDERS: ATTEND Family Medicine | DX: Z79.01 Long term (current) use of anticoagulants (principal) | CPT/HCPCS: 85610 ==

== ENCOUNTER 2018-04-22 08:52 | Outpatient (CLI) | payer MEDICARE, OTHER ==
[2018-04-22 09:19] LABS: BASOPHILS # (AUTO) 0.1 10^3/uL (0.0-0.1); BASOPHILS % (AUTO) 0.7 %; EOSINOPHILS # (AUTO) 0.1 10^3/uL (0.0-0.7); EOSINOPHILS % (AUTO) 1.9 %; LYMPHOCYTES # (AUTO) 0.6 10^3/uL (1.5-3.5); LYMPHOCYTES % (AUTO) 8.3 %; MEAN CORPUSCULAR HEMOGLOBIN 26.6 pg (27.0-31.0); MEAN CORPUSCULAR HGB CONC 32.6 g/dL (32.0-36.0); MEAN CORPUSCULAR VOLUME 81.5 fL (81.0-99.0); MEAN PLATELET VOLUME 7.4 fL (7.9-10.8); MONOCYTES # (AUTO) 0.7 10^3/uL (0.0-1.0); MONOCYTES % (AUTO) 9.2 %; NEUTROPHILS # (AUTO) 6.2 10^3/uL (1.5-6.6); NEUTROPHILS % (AUTO) 79.9 %; PLT - PLATELET COUNT 222 10^3/uL (130-450); RED BLOOD COUNT 4.13 10^6/uL (4.20-5.40); WHITE BLOOD COUNT 7.7 x10^3/uL (4.8-10.8)
[2018-04-22 09:33] LABS: ALBUMIN 3.8 g/dL (3.2-5.5); ALKALINE PHOSPHATASE 103 IU/L (42-121); ALT ALANINE AMINOTRANSFERASE 13 IU/L (10-60); AST ASPARTATE AMINOTRANSFERASE 27 IU/L (10-42); BILIRUBIN,TOTAL 1.1 mg/dL (0.2-1.0); BUN - BLOOD UREA NITROGEN 25 mg/dL (6-20); CALCIUM 9.4 mg/dL (8.5-10.3); CARBON DIOXIDE - CO2 26 mmol/L (21-32); CHLORIDE 101 mmol/L (101-111); CHOL/HDL RATIO 2.6 (<4.4); CHOLESTEROL 163 mg/dL; CREATININE 1.1 mg/dL (0.4-1.0); GFR - MDRD 47 (>89); GLUCOSE 109 mg/dL (70-100); HDL CHOLESTEROL 62 mg/dL; LDL CHOLESTEROL,CALCULATED 82 mg/dL; LDL/HDL RATIO 1.3 (<4.4); SODIUM 137 mmol/L (135-145); TOTAL PROTEIN 7.6 g/dL (6.7-8.2); VLDL CHOLESTEROL 19 mg/dL
== END 2018-04-22 08:53 | disposition home or self-care (01) ==
LOC: LAB 08:52
PROVIDERS: ATTEND Family Medicine
DX: Z79.01 Long term (current) use of anticoagulants (principal); E03.9 Hypothyroidism, unspecified; I48.92 Unspecified atrial flutter
CPT/HCPCS: 36415; 80053; 80061; 83721; 84443; 85025; 85610

== ENCOUNTER 2018-04-30 11:33 | Outpatient (CLI) | payer MEDICARE, OTHER | END 2018-04-30 11:34 | disposition home or self-care (01) | LOC: LAB 11:33 | PROVIDERS: ATTEND Specialist | DX: I48.92 Unspecified atrial flutter (principal); I10 Essential (primary) hypertension; R06.09 Other forms of dyspnea | CPT/HCPCS: 36415; 83735; 83880 ==

== ENCOUNTER 2018-05-23 10:31 | Outpatient (CLI) | payer MEDICARE, OTHER ==
[2018-05-23 10:59] LABS: CALCIUM 9.4 mg/dL (8.5-10.3); CREATININE 1.4 mg/dL (0.4-1.0); MAGNESIUM 2.1 mg/dL (1.7-2.8)
== END 2018-05-23 10:32 | disposition home or self-care (01) ==
LOC: LAB 10:31
PROVIDERS: ATTEND Specialist
DX: I12.9 Hypertensive chronic kidney disease with stage 1 through stage 4 chronic kidney disease, or unspecified chronic kidney disease (principal); N18.9 Chronic kidney disease, unspecified; E78.2 Mixed hyperlipidemia; R06.09 Other forms of dyspnea
CPT/HCPCS: 36415; 80048; 83735

== ENCOUNTER 2018-06-20 14:43 | Outpatient (CLI) | payer MEDICARE, OTHER | END 2018-06-20 14:44 | disposition home or self-care (01) | LOC: LAB 14:43 | PROVIDERS: ATTEND Family Medicine | DX: Z79.01 Long term (current) use of anticoagulants (principal) | CPT/HCPCS: 85610 ==

== ENCOUNTER 2018-07-03 14:07 | Outpatient (CLI) | payer MEDICARE, OTHER | END 2018-07-03 14:08 | disposition home or self-care (01) | LOC: LAB 14:07 | PROVIDERS: ATTEND Family Medicine | DX: Z79.01 Long term (current) use of anticoagulants (principal) | CPT/HCPCS: 85610 ==

== ENCOUNTER 2018-07-22 11:33 | Outpatient (CLI) | payer MEDICARE, OTHER | END 2018-07-22 11:34 | disposition home or self-care (01) | LOC: LAB 11:33 | PROVIDERS: ATTEND Family Medicine | DX: Z79.01 Long term (current) use of anticoagulants (principal) | CPT/HCPCS: 85610 ==

== ENCOUNTER 2018-08-19 14:33 | Outpatient (CLI) | payer MEDICARE, OTHER | END 2018-08-19 14:34 | disposition critical access hospital (66) | LOC: EMS 14:33 | PROVIDERS: ATTEND Surgery | DX: R47.9 Unspecified speech disturbances (principal); R42 Dizziness and giddiness | CPT/HCPCS: A0425; A0426 ==

== ENCOUNTER 2018-08-19 14:49 | Observation (INO) | payer MEDICARE, OTHER ==
[2018-08-19] MEDS ORDERED: IOPAMIDOL-300 100 ML VIAL ONE (15:28)
[2018-08-19 15:39] LABS: BASOPHILS # (AUTO) 0.1 10^3/uL (0.0-0.1); BASOPHILS % (AUTO) 1.1 %; EOSINOPHILS # (AUTO) 0.2 10^3/uL (0.0-0.7); EOSINOPHILS % (AUTO) 5.1 %; HGB - HEMOGLOBIN 11.6 g/dL (12.0-16.0); LYMPHOCYTES # (AUTO) 0.7 10^3/uL (1.5-3.5); LYMPHOCYTES % (AUTO) 14.7 %; MEAN CORPUSCULAR HEMOGLOBIN 26.9 pg (27.0-31.0); MEAN CORPUSCULAR HGB CONC 32.7 g/dL (32.0-36.0); MEAN CORPUSCULAR VOLUME 82.2 fL (81.0-99.0); MEAN PLATELET VOLUME 7.1 fL (7.9-10.8); MONOCYTES # (AUTO) 0.5 10^3/uL (0.0-1.0); MONOCYTES % (AUTO) 10.1 %; NEUTROPHILS # (AUTO) 3.3 10^3/uL (1.5-6.6); PLT - PLATELET COUNT 264 10^3/uL (130-450); RED BLOOD COUNT 4.29 10^6/uL (4.20-5.40); RED CELL DISTRIBUTION WIDTH 16.4 % (12.0-15.0); WHITE BLOOD COUNT 4.7 x10^3/uL (4.8-10.8)
[2018-08-19 15:46] LABS: ALBUMIN 4.2 g/dL (3.2-5.5); ALBUMIN/GLOBULIN RATIO 1.3 (1.0-2.2); BILIRUBIN,TOTAL 0.7 mg/dL (0.2-1.0); CALCIUM 9.4 mg/dL (8.5-10.3); CREATININE 1.3 mg/dL (0.4-1.0); TOTAL PROTEIN 7.5 g/dL (6.7-8.2)
[2018-08-19 15:48] LABS: PT - PROTHROMBIN TIME 32.6 secs (9.9-12.6)
--- NOTE | 2018-08-19 15:54 | ED Physician Documentation ---
PD HPI FOCAL NEURO - Stated complaint Stated Complaint: SLURRED SPEECH - Chief complaint Chief Complaint: Neuro - History obtained from History obtained from: Patient - History of Present Illness Timing - onset: Today Timing - duration: Minutes (5) Timing - details: Abrupt onset Severity of deficit: Moderate Weakness: Other (none) Numbness: Other (none) Associated symptoms: No: Headache, Nausea / vomiting, Seizure, Syncope, Fall, Head injury, Chest pain, Neck pain, Back pain Contributing factors: negative: Anticoagulated Baseline status: positive: A&OX3, ambulatory, indep Similar symptoms before: No diagnosis Recently seen: Not recently seen - Additional information Additional information: 83-year-old female was brought to the emergency department for evaluation of a sudden onset of difficulty with speech. The episode occurred suddenly and the patient was having difficulty expressing herself and according to friends she was not speaking at all and seemed confused. Currently, the patient appears to be back to her normal baseline. The patient denies any focal motor or sensory changes. Review of Systems Constitutional: denies: Fever, Chills Eyes: denies: Loss of vision Ears: denies: Ear pain Nose: denies: Congestion Throat: denies: Sore throat Cardiac: denies: Chest pain / pressure Respiratory: denies: Cough GI: denies: Abdominal Pain : denies: Dysuria Skin: denies: Laceration (s) Musculoskeletal: denies: Neck pain Neurologic: reports: Difficulty speaking, Confused. denies: Generalized weakness, Focal weakness, Numbness, Syncope, Headache, Head injury Psychiatric: denies: Hallucinations Immunocompromised: denies: Chemotherapy PD PAST MEDICAL HISTORY - Past Medical History Cardiovascular: Hypertension, High cholesterol, Atrial flutter, Atrial fibrillation, Murmur, Valve disorder, Other Respiratory: Sleep apnea, CPAP use Endocrine/Autoimmune: HyPOthyroidism GI: None : None HEENT: Chronic hearing loss Psych: None Musculoskeletal: None Derm: None - Past Surgical History Past Surgical History: Yes General: Appendectomy Ortho: Hip replacement, Knee replacement /[employer]: Hysterectomy, Oophrectomy, Other Cardiovascular: Valve replacement HEENT: Cataracts, Tonsil/Adenoidectomy - Present Medications Home Medications: Ambulatory Orders Medication Instructions Recorded Confirmed RX: Nitroglycerin 0.4 mg SL Q5M PRN 01/05/15 08/19/18 RX: Pantoprazole [Protonix] 40 mg ORAL DAILY 01/05/15 08/19/18 RX: Multivitamin [Theragran] 1 each PO DAILY 04/12/16 08/19/18 RX: Calcium Carbonate [Tums 1,000 mg PO BID 02/04/17 08/19/18 (Calcium Carbonate 500mg)] RX: Cholecalciferol (Vitamin D3) 5,000 units PO DAILY 02/04/17 08/19/18 [Vitamin D3] RX: Levothyroxine Sodium 25 mcg PO DAILY 02/04/17 08/19/18 RX: Losartan Potassium 25 mg PO DAILY 02/04/17 08/19/18 RX: Potassium Chloride 40 meq PO BIDWM 02/04/17 08/19/18 Acetaminophen [Tylenol Extra 500 mg PO TID PRN 04/17/17 08/19/18 Strength] RX: Warfarin Sodium [Coumadin] 2 mg PO .DAILY EXCEPT /Sat04/17/17 08/19/18 traMADol [Ultram] 50 mg PO QID PRN 04/17/17 08/19/18 Calcitonin [Fortical] 1 sprays SIDRA DAILY 08/19/18 08/19/18 RX: Torsemide 80 mg PO DAILY 08/19/18 08/19/18 RX: raNITIdine HCl [Ranitidine HCl] 300 mg PO QPM 08/19/18 08/19/18 Sotalol HCl [Sotalol AF] 120 mg PO DAILY 08/19/18 08/19/18 Warfarin Sodium 1 mg PO .Q /Saturday08/19/18 08/19/18 - Allergies Allergies/Adverse Reactions: Allergies Allergy/AdvReac Type Severity Reaction Status Date / Time amiodarone AdvReac Unknown Verified 08/19/18 15:06 clonidine AdvReac Unknown Verified 08/19/18 15:06 disopyramide phosphate * AdvReac Unknown Verified 08/19/18 15:06 [From Norpace] gadopentetate dimeglumine * AdvReac Unknown Verified 08/19/18 15:06 [From Magnevist] lisinopril AdvReac Unknown Verified 08/19/18 15:06 meperidine HCl * AdvReac Unknown Verified 08/19/18 15:06 [From Demerol] Penicillins AdvReac Unknown Verified 08/19/18 15:06 Sulfa (Sulfonamide AdvReac Unknown Verified 08/19/18 15:06 Antibiotics) - Social History Does the pt smoke?: No Smoking Status: Never smoker Does the pt drink ETOH?: No Does the pt have substance abuse?: No - Immunizations Immunizations are current?: Yes - POLST Patient has POLST: No PD ED PE NORMAL - General General: Alert and oriented X 3, No acute distress - HEENT HEENT: Atraumatic, PERRL, EOMI, Ears normal - Cardiac Cardiac: RRR, Strong equal pulses - Respiratory Respiratory: No respiratory distress, Clear bilaterally - Abdomen Abdomen: Soft, Non tender, Non distended - Derm Derm: Normal color - Extremities Extremities: No deformity, Normal ROM s pain - Neuro Neuro: Alert and oriented X 3, audiology doctor 2-12 intact, No motor deficit, No sensory deficit, Normal speech - Psych Psych: Normal affect Results - Vitals Vitals: Vital Signs - 24 hr 08/19/18 08/19/18 08/19/18 15:04 16:56 18:16 Temperature 37 C Heart Rate 72 71 64 Respiratory 16 16 14 Rate Blood Pressure 114/60 114/59 L 149/77 H O2 Saturation 99 94 98 08/19/18 19:18 Temperature Heart Rate 71 Respiratory 16 Rate Blood Pressure 144/82 H O2 Saturation 97 Oxygen O2 Source [With Activity] Nasal cannula O2 Source [Without Activity] Room air O2 Source Room air - Labs Labs: Laboratory Tests 08/19/18 08/19/18 08/19/18 15:25 15:25 15:25 WBC 4.7 L RBC 4.29 Hgb 11.6 L Hct 35.3 L MCV 82.2 MCH 26.9 L MCHC 32.7 RDW 16.4 H Plt Count 264 MPV 7.1 L Neut # (Auto) 3.3 Lymph # (Auto) 0.7 L Hern[place] # (Auto) 0.5 Eos # (Auto) 0.2 Baso # (Auto) 0.1 Absolute Nucleated RBC 0.00 Nucleated RBC % 0.0 PT 32.6 H INR 3.0 H APTT 40.3 H Sodium 139 Potassium 3.6 Chloride 101 Carbon Dioxide 28 Anion Gap 10.0 BUN 32 H Creatinine 1.3 H Estimated GFR (MDRD) 39 L Glucose 115 H Calcium 9.4 Total Bilirubin 0.7 AST 27 ALT 15 Alkaline Phosphatase 107 Troponin I Total Protein 7.5 Albumin 4.2 Globulin 3.3 Albumin/Globulin Ratio 1.3 Lipase 44 Urine Color Urine Clarity Urine pH Ur Specific [place] Urine Protein Urine Glucose (UA) Urine Ketones Urine Occult Blood Urine Nitrite Urine Bilirubin Urine Urobilinogen Ur Leukocyte Esterase Urine RBC Urine WBC Ur Squamous Epith Cells Urine Bacteria Ur Microscopic Review Urine Culture Comments 08/19/18 08/19/18 15:25 15:59 WBC RBC Hgb Hct MCV MCH MCHC RDW Plt Count MPV Neut # (Auto) Lymph # (Auto) [place] # (Auto) Eos # (Auto) Baso # (Auto) Absolute Nucleated RBC Nucleated RBC % PT INR APTT Sodium Potassium Chloride Carbon Dioxide Anion Gap BUN Creatinine Estimated GFR (MDRD) Glucose Calcium Total Bilirubin AST ALT Alkaline Phosphatase Troponin I < 0.04 Total Protein Albumin Globulin Albumin/Globulin Ratio Lipase Urine Color YELLOW Urine Clarity CLEAR Urine pH 6.0 Ur Specific [place] 1.010 Urine Protein NEGATIVE Urine Glucose (UA) NEGATIVE Urine Ketones NEGATIVE Urine Occult Blood SMALL H Urine Nitrite NEGATIVE Urine Bilirubin NEGATIVE Urine Urobilinogen 0.2 (NORMAL) Ur Leukocyte Esterase NEGATIVE Urine RBC 0-5 Urine WBC 0-3 Ur Squamous Epith Cells NONE SEEN Urine Bacteria Few Ur Microscopic Review INDICATED Urine Culture Comments NOT INDICATED - Rads (name of study) CTA head/neck Radiology: Final report received PD MEDICAL DECISION MAKING - ED course ED course: The findings on the patient's CTA head and neck were discussed with the stroke neurologist, since the patient has significant stenosis he recommends admission to the hospital for an echocardiogram. Based on the echocardiogram he would like to be reconsulted in the morning to discuss possibly changing the patient's anticoagulation. Unfortunately, since the vessel with the stenosis is small there is no surgical or stenting procedure and this is strictly managed medically. If MRI is available he recommends it. The findings and plan were discussed with the patient who understands and agrees to the plan. The case discussed with the hospitalist Dr. Reilly who accepts the patient onto his service - Sepsis Event Vital Signs: Vital Signs - 24 hr 08/19/18 08/19/18 08/19/18 15:04 16:56 18:16 Temperature 37 C Heart Rate 72 71 64 Respiratory 16 16 14 Rate Blood Pressure 114/60 114/59 L 149/77 H O2 Saturation 99 94 98 08/19/18 19:18 Temperature Heart Rate 71 Respiratory 16 Rate Blood Pressure 144/82 H O2 Saturation 97 Oxygen O2 Source [With Activity] Nasal cannula O2 Source [Without Activity] Room air O2 Source Room air Departure - Departure Disposition: ED Place in Observation Clinical Impression: TIA (transient ischemic attack), Abnormal CT of brain Carotid stenosis Qualifiers: Laterality: bilateral Qualified Code(s): I65.23 - Occlusion and stenosis of bilateral carotid arteries Discharge Date/Time: 08/19/18 21:03
--- NOTE | 2018-08-19 16:01 | XRAY Report ---
Reason: CP Procedure Date: 08/19/2018 Accession Number: [id number] / [id number] Procedure: XR - Chest 2 View X-Ray CPT Code: 62974 FULL RESULT: EXAM: CHEST RADIOGRAPHY EXAM DATE: 08/19/2018 03:35 PM. CLINICAL HISTORY: Chest pain COMPARISON: CHEST 2 VIEW PA/LAT 04/17/2017 8:55 PM. TECHNIQUE: 2 views. FINDINGS: Lungs/Pleura: No focal opacities evident. No pleural effusion. No pneumothorax. Normal volumes. Mediastinum: There is cardiomegaly. Patient has undergone median sternotomy for mitral valve replacement surgery. There is thoracic aortic calcification. Other: There is right convex scoliosis of the thoracolumbar spine. IMPRESSION: 1. There is cardiomegaly. There is thoracic aortic calcification. 2. No acute intrathoracic plain film abnormality. RADIA
[2018-08-19] MEDS ORDERED: IOPAMIDOL-300 100 ML VIAL IVP ONE (16:28)
[2018-08-19 16:29] LABS: BILIRUBIN,URINE NEGATIVE (NEGATIVE); GLUCOSE, URINE (UA) NEGATIVE (NEGATIVE); KETONES,URINE (UA) NEGATIVE (NEGATIVE); LEUKOCYTE ESTERASE, URINE NEGATIVE (NEGATIVE); NITRITE,URINE NEGATIVE (NEGATIVE); OCCULT BLOOD,URINE SMALL (NEGATIVE); PROTEIN,URINE NEGATIVE (NEGATIVE); UROBILINOGEN,URINE 0.2 (NORMAL) E.U./dL (NORMAL)
[2018-08-19 16:31] LABS: CLARITY,URINE CLEAR (CLEAR)
[2018-08-19 16:38] LABS: BACTERIA,URINE Few /HPF (None Seen); RBC,URINE 0-5 /HPF (0-5); SQUAMOUS EPITHELIAL CELL,UR NONE SEEN (<= Few)
--- NOTE | 2018-08-19 17:15 | CT Report ---
Reason: Slurred speech Procedure Date: 08/19/2018 Accession Number: [id number] / [id number] Procedure: CT - Head Angio CPT Code: FULL RESULT: CT HEAD WITHOUT AND WITH CONTRAST AND CT ANGIOGRAM HEAD INDICATION: 83-year-old female with slurred speech. Please assess. TECHNIQUE: Head CT: Sequential 5 mm axial images were obtained through the brain prior to and following the CT angiogram. CT Angiogram Head: 80 mL of Isovue-300 contrast was injected at a rapid rate through a large bore left antecubital intravenous catheter. The head was scanned helically during arterial phase. Data was reconstructed into 0.5 mm axial images. In addition, MIP reconstructions have been generated in multiple projections to allow better assessment of the intracranial arteries. COMPARISON: Brain MRI 04/30/2017. FINDINGS: Head CT: There is generalized prominence of the cerebral cortical sulci, stable. Ventricular size is stable. No hydrocephalus. A moderate amount of white matter disease is identified in the supratentorial brain, better demonstrated on the previous MRI study and likely representing chronic microangiopathy. 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 Small foci of encephalomalacia are again demonstrated in the cerebellar hemispheres, also better seen on previous MRI study. Attenuation of cortex and white matter is otherwise unremarkable. No intracranial hemorrhage or abnormal extraaxial fluid collection. No enhancing space-occupying mass lesion is demonstrated. Noted is normal intravascular contrast enhancement in the dural venous sinuses and deep venous structures. Middle ear cavities and mastoid air cells appear clear. The paranasal sinuses are essentially clear. CT Angiogram Head: Anterior Circulation: There is calcified plaque scattered throughout the carotid siphons without significant associated ICA stenosis. No ICA aneurysm is identified. The A1 segments of the anterior cerebral arteries are codominant. There appears to be a tiny anterior communicating artery. There is filling of the A2 and distal [place] branches. Noted is a focal high-grade stenosis in the proximal right pericallosal artery (see image 81 of series 14). This probably represents 80% or greater stenosis. There is filling of the pericallosal artery distal to this level. No obvious [place] branch occlusion is demonstrated. The middle cerebral arteries are unremarkable. No aneurysm is identified, and there is no obvious occlusion or hemodynamically significant stenosis affecting main branches of either MCA. There appear to be a similar number of opacified M3 and M4 branches bilaterally. Posterior Circulation: The left vertebral artery is hypoplastic but patent. There is filling of a normal-sized left PICA. There is calcified atherosclerotic plaque in the V4 segment right vertebral artery, near the junction between the proximal and middle thirds. No significant associated stenosis. The right PICA is patent. No aneurysm at its origin. The basilar artery is tortuous and relatively small but patent throughout. There appears to be good filling of both superior cerebellar arteries. The P1 segments of the posterior cerebral arteries are hypoplastic. However, there are large posterior communicating arteries that supply the P2 and distal [employer] branches bilaterally. No significant stenosis is identified involving main [employer] branches. No aneurysms are seen arising from the basilar artery trunk or apex. IMPRESSION: Head CT 1. There are chronic changes in the brain as described. They appear essentially stable when compared to previous brain MRI 04/30/2017. 2. No acute intracranial pathology is identified. In particular, there is no intracranial hemorrhage and no evidence of acute large vessel territory cortical infarction (ASPECTS score equal to [address] Angiogram Head 1. 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 However, there does appear to be good filling of the pericallosal artery distal to the focal stenosis. 2. No other significant pathology is demonstrated. In particular, no other high-grade stenosis is demonstrated involving main intracranial arteries, and there is no obvious main branch occlusion. The findings of severe stenosis and right pericallosal artery were called to Dr. May, following interpretation on 08/09/2018 at 1735hours. ADDENDUM: 08/19/18 19:[address] protocol optimization, one or more of the following dose reduction techniques were utilized for this exam: automated exposure control, adjustment of mA and/or KV based on patient size, or use of iterative reconstructive technique.
--- NOTE | 2018-08-19 17:28 | CT Report ---
Reason: Slurred speech Procedure Date: 08/19/2018 Accession Number: [id number] / [id number] Procedure: CT - Neck Angio CPT Code: FULL RESULT: EXAM: CT ANGIOGRAM NECK. INDICATION: 83-year-old female with slurred speech. TECHNIQUE: 80 cc of Isovue-300 contrast were injected at a rapid rate through a large bore, left antecubital intravenous catheter. The neck was scanned helically during arterial phase. Data was reconstructed into 0.5 mm axial images. In addition, MIP reconstructions have been generated in multiple projections to allow better assessment of the extracranial carotid and vertebral arteries. Significant arterial stenoses will be assessed using NASCET type measurements. In accordance with CT protocol optimization, one or more of the following dose reduction techniques were utilized for this exam: automated exposure control, adjustment of mA and/or KV based on patient size, or use of iterative reconstructive technique. COMPARISON: None. FINDINGS: There is normal branching of the aortic arch. Atherosclerotic disease is seen in the arch. Calcified plaques are demonstrated at the origins of the first order, supra-aortic arteries without significant associated stenosis. Right carotid artery: There is calcified plaque at the carotid bifurcation giving rise to mild narrowing in the distal common carotid artery just proximal to the bifurcation. The lumen is reduced to roughly 3.6 mm, compared to about 6 mm more proximally, consistent with a 40% NASCET type stenosis. There is minimal narrowing in the carotid bulb. The extracranial ICA is otherwise unremarkable. Left carotid artery: There is fairly heavily calcified plaque at the carotid bifurcation. There is associated narrowing, maximal in the distal common carotid artery, just proximal to the bifurcation where the lumen is reduced to about 2.5 mm. More proximally the common carotid artery measures about 6 mm, consistent with a 60% NASCET type stenosis. There is mild narrowing in the proximal bulb. Right vertebral artery: Patent from origin to distal V3 segment without significant focal narrowing. Left vertebral artery: Hypoplastic. The small size makes assessment difficult. There is calcified plaque at the origin that likely gives rise to at least 50%, possibly greater stenosis. The V1 segment is otherwise unremarkable. The V2 and V3 segments are patent throughout. Noted is a dilated, predominately fluid-filled esophagus. A similar abnormality is seen on previous chest CT 06/14/2017, confirming that this does not relate to new pathology. However, the possibility of distal obstruction/narrowing cannot be excluded. Again demonstrated is scarring at the pulmonary apices bilaterally. No discrete mass/nodule is identified in the imaged upper lungs. IMPRESSION: 1. Atherosclerotic disease at the carotid bifurcations gives rise to about 40% stenosis in the distal right common carotid artery and about 60% stenosis in the distal left common carotid artery. There is very mild narrowing in the carotid bulbs bilaterally. 2. The left vertebral artery is hypoplastic. The small size makes assessment difficult. There is calcified plaque at the origin that appears to be giving rise to 50%, possibly greater narrowing at the origin. The extracranial vertebral arteries are otherwise unremarkable. No stenosis is demonstrated in the dominant right vertebral artery.
[2018-08-19] MEDS ORDERED: NITROGLYCERIN SL 0.4 MG TABLET SL PRN (20:00)
[2018-08-19] MEDS ORDERED: traMADol 50 MG TABLET PO PRN (20:00)
[2018-08-19] MEDS ORDERED: WARFARIN 1 MG TABLET PO SCH ×2 (20:00)
[2018-08-19] MEDS ORDERED: ACETAMINOPHEN 325 MG TABLET PO PRN (20:03)
[2018-08-19] MEDS ORDERED: PROCHLORPERAZINE 10 MG/2 ML VIAL IVP PRN (20:03)
[2018-08-19] MEDS ORDERED: SODIUM CHLORIDE FLUSH 0.9% 10 ML SYRINGE IVP PRN (20:03)
[2018-08-19] MEDS ORDERED: ZOLPIDEM 5 MG TABLET PO PRN (20:03)
[2018-08-19] MEDS ORDERED: oxyCODONE 5 MG TABLET PO PRN (20:03)
[2018-08-19] MEDS ORDERED: ONDANSETRON 4 MG/2 ML VIAL IVP PRN (20:03)
[2018-08-19] MEDS ORDERED: PROMETHAZINE 25 MG/1 ML VIAL IM PRN (20:03)
[2018-08-19] MEDS ORDERED: ATORVASTATIN 40 MG TABLET PO SCH (21:00)
--- NOTE | 2018-08-19 21:16 | HISTORY & PHYSICAL EXAMINATION ---
Chief Complaint - Chief Complaint Chief Complaint: Difficulty speaking History of Present Illness - Admitted From Admitted From:: Emergency Department - History Obtained From Records Reviewed: Yes History obtained from: Patient Exam Limitations: None - History of Present Illness HPI Comment/Other: Patient is an 83-year-old female with a past medical history significant for atrial flutter/fibrillation, hypothyroidism, congestive heart failure, hypertension, mitral valve replacement with a bovine valve, GERD, obstructive sleep apnea on CPAP, osteoarthritis, glaucoma and history of TIA who presents to the emergency department with a chief complaint of difficulty speaking. The patient states that she was with a group of friends this afternoon and they were talking around table. She states that she wanted to ask a question but could not get the words out. Her friends became concerned and helped her up and moved her to another chair. The patient states that she did not feel weak and had no facial asymmetry according to her friends. She states that she did feel lightheaded and as though things were getting very foggy. She states that she continued to have difficulties expressing herself. She states that she could think of what she wanted to stay but she could not speak. She states that all of this lasted for about 5 minutes and then symptoms slowly resolved to where she was back to her baseline as far as speaking. She denies any fevers or chills, she denies any chest pain, she denies any shortness of breath, she denies any neck stiffness or back pain and she denies any headache. Patient denies any blurred vision, runny nose, sore throat, nasal congestion, difficulty swallowing, palpitations, orthopnea, PND, increased lower extremity swelling, nausea, vomiting, diarrhea, constipation, abdominal pain, urinary urgency, urinary frequency, dysuria, joint pain, joint swelling, muscle aches, recent unintentional weight loss, changes in her appetite, hair loss, rash or any night sweats. On presentation to the emergency department the patient was afebrile and vital signs were all within normal limits. Patient's symptoms had completely resolved. The patient underwent a chest x-ray which revealed cardiomegaly and thoracic aortic calcification with no acute intrathoracic plain film abnorma lity. The patient's lab work revealed a mildly elevated creatinine of 1.3 which was near her previous baseline. A negative troponin, a mild leukopenia and anemia. Patient's INR was 3.0. The patient's urine analysis was negative. 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 Given these findings the emergency room physician spoke with [facility] neurology electronics warfare technician who stated that there was no need for intervention given that there was distal flow in the artery. They did however recommend observing the patient overnight and getting an echocardiogram and MRI in the morning. They asked that they be called in the morning with results of the tests to decide upon whether to continue Coumadin or to change the patient's anticoagulation. The patient was placed in observation for further monitoring and tests. History - Past Medical History Cardiovascular: reports: Congestive heart failure, Hypertension, High cholesterol, Atrial flutter, Atrial fibrillation, Murmur, Valve disorder, Other Respiratory: reports: Sleep apnea, CPAP use Neuro: reports: TIA Endocrine/Autoimmune: reports: HyPOthyroidism GI: reports: GERD : reports: None HEENT: reports: Glaucoma, Chronic hearing loss Psych: reports: None Musculoskeletal: reports: Osteoarthritis Derm: reports: None MRSA Hx?: No - Past Surgical History General: reports: Appendectomy Ortho: reports: Hip replacement, Knee replacement /[employer]: reports: Hysterectomy, Oophrectomy, Other Cardiovascular: reports: Valve replacement HEENT: reports: Cataracts, Tonsil/Adenoidectomy - Family & Social History Family History: Mother: Alive and Well (Mother lived to be 99 and was healthy, dad in an MVA), Father: Alive and Well, Other family: Cancer (Grandson with AML), Diabetes, Type 2 (Son) Living arrangement: At home Living Situation: Alone Social History Notes: Patient lives in [place], [place]. She lives alone as she has been now for 17 years. She had 4 sons 3 of them are still living. One son lives in [place], one son lives south of [place] and another lives near [place]. 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 She and her lived in [place] for many years and retired to [employer]. The patient has never smoked, she has a glass of wine once in a while and denies any illicit drug use. - POLST Patient has POLST: No Meds/Allgy - Home Medications Home Medications: Ambulatory Orders Medication Instructions Recorded Confirmed Nitroglycerin 0.4 mg SL Q5M PRN 01/05/15 08/19/18 Pantoprazole [Protonix] 40 mg ORAL DAILY 01/05/15 08/19/18 Multivitamin [Theragran] 1 each PO DAILY 04/12/16 08/19/18 Calcium Carbonate [Tums (Calcium 1,000 mg PO BID 02/04/17 08/19/18 Carbonate 500mg)] Cholecalciferol (Vitamin D3) 5,000 units PO DAILY 02/04/17 08/19/18 [Vitamin D3] Levothyroxine Sodium 25 mcg PO DAILY 02/04/17 08/19/18 Losartan Potassium 25 mg PO DAILY 02/04/17 08/19/18 Potassium Chloride 40 meq PO BIDWM 02/04/17 08/19/18 Acetaminophen [Tylenol Extra 500 mg PO TID PRN 04/17/17 08/19/18 Strength] Warfarin Sodium [Coumadin] 2 mg PO .DAILY EXCEPT /Sat04/17/17 08/19/18 traMADol [Ultram] 50 mg PO QID PRN 04/17/17 08/19/18 Calcitonin [Fortical] 1 sprays SIDRA DAILY 08/19/18 08/19/18 Sotalol HCl [Sotalol AF] 120 mg PO DAILY 08/19/18 08/19/18 Torsemide 80 mg PO DAILY 08/19/18 08/19/18 Warfarin Sodium 1 mg PO .Q /Saturday08/19/18 08/19/18 raNITIdine HCl [Ranitidine HCl] 300 mg PO QPM 08/19/18 08/19/18 - Allergies Allergies/Adverse Reactions: Allergies Allergy/AdvReac Type Severity Reaction Status Date / Time amiodarone AdvReac Unknown Verified 08/19/18 15:06 clonidine AdvReac Unknown Verified 08/19/18 15:06 disopyramide phosphate * AdvReac Unknown Verified 08/19/18 15:06 [From Norpace] gadopentetate dimeglumine * AdvReac Unknown Verified 08/19/18 15:06 [From Magnevist] lisinopril AdvReac Unknown Verified 08/19/18 15:06 meperidine HCl * AdvReac Unknown Verified 08/19/18 15:06 [From Demerol] Penicillins AdvReac Unknown Verified 08/19/18 15:06 Sulfa (Sulfonamide AdvReac Unknown Verified 08/19/18 15:06 Antibiotics) Review of Systems - Other Findings Other Findings: A comprehensive review of systems was performed the pertinent positives and negatives are stated above in the HPI and the remainder of the review of systems is negative. Exam - Vital Signs Reviewed Vital Signs: Yes Vital Signs: Vital Signs x48h Temp Pulse Resp BP Pulse Ox 08/19/18 19:18 71 16 144/82 H 97 08/19/18 18:16 64 14 149/77 H 98 08/19/18 16:56 71 16 114/59 L 94 08/19/18 15:04 37 C 72 16 114/60 99 - Physical Exam General Appearance: positive: No acute distress, Alert Eyes Bilateral: positive: Normal inspection, PERRL, EOMI, No lid inflammation, Conjunctivae nml, No scleral icterus ENT: positive: ENT inspection nml, Pharynx nml, No signs of dehydration. negative: Purulent nasal drainage, Pharyngeal erythema, Oral lesions Neck: positive: Nml inspection, Thyroid nml, No JVD, Trachea midline, Carotid bruit. negative: Lymphadenopathy (R), Lymphadenopathy (L), Tracheal deviation Respiratory: positive: Chest non-tender, No respiratory distress, Breath sounds nml. negative: Wheezes, Rales, Rhonchi Cardiovascular: positive: No gallop, Irregularly irregular, Systolic murmur Peripheral Pulses: positive: 2+ Abdomen: positive: Non-tender, No organomegaly, Nml bowel sounds, No distention. negative: Guarding, Rebound, Hepatomegaly Back: positive: Nml inspection. negative: CVA tenderness (R), CVA tenderness (L) Skin: positive: Color nml, No rash, Warm, Dry. negative: Cyanosis, Diaphoresis, Pallor, Skin rash Extremities: positive: Non-tender, Full ROM, Nml appearance, No pedal edema Neurologic/Psychiatric: positive: Oriented x3, CN's nml (2-12), Motor nml, Sensation nml, Mood/affect nml Conclusion/Plan - Problem List (1) TIA (transient ischemic attack) Conclusion/Plan: The patient appears to have had a TIA prior to presentation to the emergency department. The patient had about a 5 minute spell where she had expressive aphasia. The patient's symptoms are completely resolved by the time she arrived in the emergency department. 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 There was however good flow in the distal artery. The emergency room physician spoke with the [facility] neurologist electronics warfare technician who stated there was nothing to do as far as intervention for this stenosis given that there was distal flow. He however did asked that the patient be placed in observation for echocardiogram and MRI. He asked that the results be given to them in the morning and that there would need to be a decision regarding whether to continue Coumadin or start another anticoagulant depending on results. Plan: Aspirin Lipitor MRI brain Echo Lipid profile Tele Neurochecks Contact [facility] neurology with results of echocardiogram and MRI. (2) Atrial fibrillation and flutter Conclusion/Plan: The patient has a history of atrial fibrillation/flutter and has had an ablation in the past. Currently the patient is on anticoagulation with Coumadin and has a therapeutic INR of 3.0. The patient has a chads 2 score of 5. The patient is currently rate controlled with sotalol. She does appear to be in atrial fibrillation. Plan: Continue patient's Coumadin and sotalol Monitor on telemetry Echocardiogram if echo does show cardiac thrombus patient will need to be changed to different anticoagulation agent. (3) Hypertension Conclusion/Plan: Patient has a history of hypertension and on presentation patient's blood pressure is within normal limits. Given that the patient has had TIA we will allow for permissive hypertension and give patient IV fluids for the first 24 hours. Qualifiers: Hypertension type: essential hypertension Qualified Code(s): I10 - Essential (primary) hypertension (4) Hypothyroid Conclusion/Plan: Patient has a history of hypothyroidism and is on Synthroid at home. We will continue the patient's home dose of Synthroid while she is hospitalized. We will check a TSH. Qualifiers: Hypothyroidism type: unspecified Qualified Code(s): E03.9 - Hypothyroidism, unspecified (5) JOAN on CPAP Conclusion/Plan: The patient has a history of obstructive sleep apnea and is on CPAP at home. We will continue her home dose of CPAP while she is hospitalized. - Lab Results Lab results reviewed: Yes Fish Bones: 08/19/18 15:25 08/19/18 15:25 Other Lab Results: Laboratory Results WBC 4.7 x10^3/uL (4.8-10.8) L 08/19/18 15:25 RBC 4.29 10^6/uL (4.20-5.40) 08/19/18 15:25 Hgb 11.6 g/dL (12.0-16.0) L 08/19/18 15:25 Hct 35.3 % (37.0-47.0) L 08/19/18 15:25 MCV 82.2 fL (81.0-99.0) 08/19/18 15:25 MCH 26.9 pg (27.0-31.0) L 08/19/18 15:25 MCHC 32.7 g/dL (32.0-36.0) 08/19/18 15:25 RDW 16.4 % (12.0-15.0) H 08/19/18 15:25 Plt Count 264 10^3/uL (130-450) 08/19/18 15:25 MPV 7.1 fL (7.9-10.8) L 08/19/18 15:25 Neut # (Auto) 3.3 10^3/uL (1.5-6.6) 08/19/18 15:25 Lymph # (Auto) 0.7 10^3/uL (1.5-3.5) L 08/19/18 15:25 [place] # (Auto) 0.5 10^3/uL (0.0-1.0) 08/19/18 15:25 Eos # (Auto) 0.2 10^3/uL (0.0-0.7) 08/19/18 15:25 Baso # (Auto) 0.1 10^3/uL (0.0-0.1) 08/19/18 15:25 Absolute Nucleated RBC 0.00 x10^3/uL 08/19/18 15:25 Nucleated RBC % 0.0 /100WBC 08/19/18 15:25 PT 32.6 secs (9.9-12.6) H 08/19/18 15:25 INR 3.0 (0.8-1.2) H 08/19/18 15:25 APTT 40.3 secs (24.9-33.3) H 08/19/18 15:25 Sodium 139 mmol/L (135-145) 08/19/18 15:25 Potassium 3.6 mmol/L (3.5-5.0) 08/19/18 15:25 Chloride 101 mmol/L (101-111) 08/19/18 15:25 Carbon Dioxide 28 mmol/L (21-32) 08/19/18 15:25 Anion Gap 10.0 (6-13) 08/19/18 15:25 BUN 32 mg/dL (6-20) H 08/19/18 15:25 Creatinine 1.3 mg/dL (0.4-1.0) H 08/19/18 15:25 Estimated GFR (MDRD) 39 (>89) L 08/19/18 15:25 Glucose 115 mg/dL (70-100) H 08/19/18 15:25 Calcium 9.4 mg/dL (8.5-10.3) 08/19/18 15:25 Total Bilirubin 0.7 mg/dL (0.2-1.0) 08/19/18 15:25 AST 27 IU/L (10-42) 08/19/18 15:25 ALT 15 IU/L (10-60) 08/19/18 15:25 Alkaline Phosphatase 107 IU/L (42-121) 08/19/18 15:25 Troponin I < 0.04 ng/mL (<0.49) 08/19/18 15:25 Total Protein 7.5 g/dL (6.7-8.2) 08/19/18 15:25 Albumin 4.2 g/dL (3.2-5.5) 08/19/18 15:25 Globulin 3.3 g/dL (2.1-4.2) 08/19/18 15:25 Albumin/Globulin Ratio 1.3 (1.0-2.2) 08/19/18 15:25 Lipase 44 U/L (22-51) 08/19/18 15:25 Urine Color YELLOW 08/19/18 15:59 Urine Clarity CLEAR (CLEAR) 08/19/18 15:59 Urine pH 6.0 PH (5.0-7.5) 08/19/18 15:59 Ur Specific [place] 1.010 (1.002-1.030) 08/19/18 15:59 Urine Protein NEGATIVE mg/dL (NEGATIVE) 08/19/18 15:59 Urine Glucose (UA) NEGATIVE mg/dL (NEGATIVE) 08/19/18 15:59 Urine Ketones NEGATIVE mg/dL (NEGATIVE) 08/19/18 15:59 Urine Occult Blood SMALL (NEGATIVE) H 08/19/18 15:59 Urine Nitrite NEGATIVE (NEGATIVE) 08/19/18 15:59 Urine Bilirubin NEGATIVE (NEGATIVE) 08/19/18 15:59 Urine Urobilinogen 0.2 (NORMAL) E.U./dL (NORMAL) 08/19/18 15:59 Ur Leukocyte Esterase NEGATIVE (NEGATIVE) 08/19/18 15:59 Urine RBC 0-5 /HPF (0-5) 08/19/18 15:59 Urine WBC 0-3 /HPF (0-5) 08/19/18 15:59 Ur Squamous Epith Cells NONE SEEN (<= Few) 08/19/18 15:59 Urine Bacteria Few /HPF (None Seen) 08/19/18 15:59 Ur Microscopic Review INDICATED 08/19/18 15:59 Urine Culture Comments NOT INDICATED 08/19/18 15:59 - Diagnostic Imaging Results Diagnostic Imaging Results: positive: Final report reviewed Diagnostic Imaging Results Comments: Chest x-ray Impression: 1. There is cardiomegaly. There is thoracic aortic calcification. 2. No acute intrathoracic plain film abnormality. CT head Impression: 1. There is chronic changes in the brain. They appear essentially stable when compared to previous brain MRI 04/30/2017. 2. No acute intracranial pathology is identified. In particular there is no intracranial hemorrhage and no evidence of acute large vessel territory cortical infarction. CT angiogram head Impression: 1. 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 However there does appear to be good filling of the pericallosal artery distal to the focal stenosis. 2. No other significant pathology is demonstrated. In particular no other high-grade stenosis is demonstrated involving the main intracranial arteries, and there is no obvious mean branch occlusion. CT angiogram neck Impression: 1. Atherosclerotic disease at the carotid bifurcations give rise to about 40% stenosis in the distal right common carotid artery and about 60% stenosis in the distal left common carotid artery. There is very mild narrowing in the carotid bulbs bilaterally. 2. The left vertebral artery is hypoplastic. The small size makes assessment difficult. There is calcified plaque at the origin that appears to be giving rise to 50%, possible greater narrowing at the origin. The extracranial vertebral arteries are otherwise unremarkable. No stenosis is demonstrated in the dominant right vertebral artery. - EKG Results EKG Interpreted Independently: Yes EKG Findings: Atrial fibrillation with left ventricular hypertrophy and no acute ischemic changes. Core Measures - Anticipated LOS I expect patient to be DC'd or transferred within 96 hours.: Yes - DVT/VTE - Prophylaxis VTE/DVT Prophylaxis med ordered at admit?: Yes
[2018-08-19] MEDS: CALCIUM CARBONATE CHEW 500 MG TABLET PO SCH (21:46)
[2018-08-19] MEDS: SODIUM CHLORIDE 0.9% 1,000 ML IV SCH (22:41)
[2018-08-20] MEDS: SODIUM CHLORIDE FLUSH 0.9% 10 ML SYRINGE IVP SCH ×2 (00:02→08:48)
[2018-08-20 06:43] LABS: BASOPHILS % (AUTO) 0.7 %; EOSINOPHILS # (AUTO) 0.2 10^3/uL (0.0-0.7); HGB - HEMOGLOBIN 10.6 g/dL (12.0-16.0); LYMPHOCYTES # (AUTO) 0.8 10^3/uL (1.5-3.5); LYMPHOCYTES % (AUTO) 16.8 %; MEAN CORPUSCULAR HEMOGLOBIN 27.2 pg (27.0-31.0); MEAN CORPUSCULAR HGB CONC 32.9 g/dL (32.0-36.0); MEAN CORPUSCULAR VOLUME 82.7 fL (81.0-99.0); MEAN PLATELET VOLUME 7.3 fL (7.9-10.8); MONOCYTES # (AUTO) 0.5 10^3/uL (0.0-1.0); MONOCYTES % (AUTO) 10.9 %; NEUTROPHILS # (AUTO) 3.1 10^3/uL (1.5-6.6); NEUTROPHILS % (AUTO) 66.6 %; PLT - PLATELET COUNT 216 10^3/uL (130-450); RED BLOOD COUNT 3.88 10^6/uL (4.20-5.40); WHITE BLOOD COUNT 4.6 x10^3/uL (4.8-10.8)
[2018-08-20 06:47] LABS: INR 2.7 (0.8-1.2)
[2018-08-20] MEDS ORDERED: PANTOPRAZOLE 40 MG TABLET PO SCH (07:00)
[2018-08-20 07:04] LABS: ALBUMIN 3.6 g/dL (3.2-5.5); ALBUMIN/GLOBULIN RATIO 1.4 (1.0-2.2); BILIRUBIN,TOTAL 0.7 mg/dL (0.2-1.0); TOTAL PROTEIN 6.2 g/dL (6.7-8.2)
[2018-08-20 07:21] LABS: CHOLESTEROL 176 mg/dL; HDL CHOLESTEROL 59 mg/dL; LDL CHOLESTEROL,CALCULATED 99 mg/dL; LDL/HDL RATIO 1.7 (<4.4); VLDL CHOLESTEROL 18 mg/dL
[2018-08-20] MEDS ORDERED: ASPIRIN 325 MG TABLET PO SCH (08:00)
[2018-08-20] MEDS: SODIUM CHLORIDE 0.9% 1,000 ML IV SCH (08:41)
[2018-08-20] MEDS: CALCIUM CARBONATE CHEW 500 MG TABLET PO SCH (08:42)
[2018-08-20] MEDS: POTASSIUM CHLORIDE 20 MEQ TABLET PO SCH ×2 (08:45→16:21)
[2018-08-20] MEDS ORDERED: ENOXAPARIN 40 MG/0.4 ML SYRINGE SUBQ SCH (09:00)
[2018-08-20] MEDS ORDERED: MULTIVITAMIN TABLET PO SCH (09:00)
[2018-08-20] MEDS ORDERED: LEVOTHYROXINE 25 MCG TABLET PO SCH (09:00)
[2018-08-20] MEDS ORDERED: CHOLECALCIFEROL 5,000 UNIT CAPSULE PO SCH (09:00)
[2018-08-20] MEDS ORDERED: SOTALOL 80 MG TABLET PO SCH (09:00)
[2018-08-20] MEDS ORDERED: LOSARTAN 50 MG TABLET PO SCH (09:00)
[2018-08-20] MEDS ORDERED: CALCITONIN NASAL SPRAY NAS SCH (09:00)
[2018-08-20] MEDS ORDERED: POLYETHYLENE GLYCOL 3350 17 GM PACKET PO SCH (09:00)
[2018-08-20] MEDS ORDERED: TORSEMIDE 20 MG TABLET PO SCH (09:00)
[2018-08-20] MEDS ORDERED: ENOXAPARIN 30 MG/0.3 ML SYRINGE SUBQ SCH (09:00)
--- NOTE | 2018-08-20 13:33 | MRI Report ---
Reason: Dysarthria, TIA Procedure Date: 08/20/2018 Accession Number: [id number] / [id number] Procedure: MRI - Brain W/O CPT Code: FULL RESULT: EXAM: MRI BRAIN WITHOUT CONTRAST EXAM DATE: 08/20/2018 01:10 PM. CLINICAL HISTORY: Dysarthria, TIA. COMPARISON: BRAIN W/O 04/30/2017 9:46 AM. TECHNIQUE: Multiplanar, multisequence T1-weighted and fluid-sensitive MR sequences of the brain were performed. Sequences optimized for routine evaluation. Other: None. IV Contrast: None. FINDINGS: No restricted diffusion to suggest acute or recent ischemic infarct. Again seen are multiple tiny foci of T2 hyperintensity in both cerebellar hemispheres consistent with small chronic ischemic infarcts. No cerebral acute hemorrhage. No midline shift or abnormal subdural fluid collection. Stable findings likely representing chronic microhemorrhages in the right frontal lobe and right cerebellum. Normal brain volume for age. No hydrocephalus. Grossly stable moderately prominent chronic cerebral white matter disease likely related to aging and chronic microangiopathy. No acute sinus or mastoid disease. Prior lens extractions. No focal pathologic-appearing marrow signal changes in the skull or clivus. IMPRESSION: 1. No evidence for new or acute intracranial abnormality. 2. Stable chronic age-related and postischemic changes as previously demonstrated. RADIA
[2018-08-20 16:28] VITALS: BP 128/60
--- NOTE | 2018-08-20 17:55 | Discharge Plan ---
Discharge Plan Disposition: 01 Home, Self Care Condition: Stable Diet: Cardiac Activity Restrictions: Activity as Tolerated Instruction Topics: TIA, Blockage Carotid Artery Additional Instructions or Follow Up instructions: Resume all your same pre-hospital medications. See your doctor in follow-up and you may need to followed by a Neurologist also. Return to the ER if you have new or worsening symptoms. No Smoking: If you smoke, Please STOP! Call for help. Follow-up with: Teri Mejia DO [Primary Care Provider] -
--- NOTE | 2018-09-02 10:40 | DISCHARGE SUMMARY ---
Physician: Noris Finn MD DATE OF ADMISSION: 08/19/2018 DATE OF DISCHARGE: 08/20/2018 HISTORY OF PRESENT ILLNESS: This is an 83-year-old, white female with a past medical history of atrial fibrillation-flutter on Coumadin, hypothyroidism, hypertension, bovine mitral valve replacement, GERD, sleep apnea on CPAP, osteoarthritis, glaucoma, prior history of TIA. The patient presented to the emergency room with a chief complaint of difficulty speaking and a foggy feeling that lasted approximately 5 minutes that was witnessed by friends. The patient was placed in Observation to evaluate for TIA. HOSPITAL COURSE AND DISCHARGE DIAGNOSES 1. Transient ischemic attack (TIA). The patient had an Xray of the chest that showed an atherosclerotic aorta. 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 The emergency room physician spoke with the [facility] neurologist call center consultant, who stated that there was nothing to be done, as far as intervention for this stenosis, since there was distal flow. She underwent an Echocardiogram, which showed mild LVH, normal LVEF of 60-65% with no intracardiac clot, no intracardiac shunt, she had a dilated left atrium and right atrium, mild aortic stenosis, mild aortic regurgitation, normally functioning bioprosthetic mitral valve replacement, moderate tricuspid regurgitation, calculated RVSP of 68 mmHg. The patient also had an MRI of the brain, which showed no evidence for new or acute intracranial abnormality and stable chronic age-related postischemic changes, related to aging and chronic microangiopathy. The patient's Coumadin was therefore not changed, and she was also kept on her antiplatelet agent. She was advised to have followup with her PCP, who may refer her to a Neurologist, and also to have followup with her Construction Secretary. 2. Atrial fibrillation flutter. The patient was continued on her Coumadin while here. (Her CHADS score is 5.) The patient had good rate control while here. She was maintained on her Sotalol. 3. History of mitral valve replacement. As per the Echo result (above), there was normal function of the valve replacement noted. 4. Hypertension. The patient's blood pressure was controlled, and no severely hypotensive episodes occurred. 5. Hypothyroidism. Patient was continued on her thyroid medication. Her TSH was stable at 2.41. 6. Sleep apnea, on CPAP. Her home device was ordered to be used. LABS AND IMAGING: Reviewed and summarized above. ALLERGIES: AMIODARONE, CLONIDINE, DISOPYRAMIDE, MAGNEVIST, LISINOPRIL, DEMEROL, PENICILLIN, SULFA. MEDICATIONS AT DISCHARGE: 1. Warfarin. 2. Zantac 300 mg every night. 3. Sotalol 120 mg daily. 4. Ultram 50 mg q.i.d. p.r.n. pain. 5. Torsemide 80 mg daily. 6. Protonix 40 mg daily. 7. Nitroglycerin sublingual p.r.n. 8. Multivitamin daily. 9. Losartan 25 mg daily. 10. Levothyroxine 25 mcg daily. 11. Potassium chloride 40 mEq b.i.d. 12. Vitamin D3 5000 units daily. 13. Calcium 1000 mg b.i.d. 14. Tylenol Extra Strength p.r.n. 15. Calcitonin 1 spray nasally daily. CONDITION AT DISCHARGE: Stable. PHYSICAL EXAMINATION: VITAL SIGNS: Blood pressure 128/60. Pulse of 65, in atrial fibrillation. Afebrile. Room air saturation 96%. HEENT: Unremarkable. NECK: Without JVD or carotid bruits. CHEST: Clear. HEART: Sounds are irregular. No murmur is heard. ABDOMEN: Soft and benign. EXTREMITIES: No clubbing, cyanosis, or edema. NEUROLOGIC: Intact. FOLLOWUP: Recommended to see her PCP and Construction Secretary, possible a Neurology referral. CODE STATUS: FULL CODE. Time required to complete this discharge, patient education, chart review, and dictation: 30 minutes. cc: Teri Mejia DO TD: 09/02/2018 10:14 [email or web address]
== END 2018-08-20 18:00 | disposition home or self-care (01) ==
LOC: EDUNIT# → ED 14:49 → OBS 20:03
PROVIDERS: ADMIT Internal Medicine; ATTEND Internal Medicine
DX: G45.9 Transient cerebral ischemic attack, unspecified (principal); I70.0 Atherosclerosis of aorta; I66.8 Occlusion and stenosis of other cerebral arteries; I08.2 Rheumatic disorders of both aortic and tricuspid valves; I73.9 Peripheral vascular disease, unspecified; I11.0 Hypertensive heart disease with heart failure; I50.9 Heart failure, unspecified; I48.91 Unspecified atrial fibrillation; I48.92 Unspecified atrial flutter; E03.9 Hypothyroidism, unspecified; K21.9 Gastro-esophageal reflux disease without esophagitis; G47.33 Obstructive sleep apnea (adult) (pediatric); Z79.01 Long term (current) use of anticoagulants; Z95.3 Presence of xenogenic heart valve; Z79.899 Other long term (current) drug therapy
CPT/HCPCS: 36415; 70496; 70498; 70551; 71046; 80053; 80061; 81001; 83690; 84443; 84484; 85025; 85610; 85730; 93005; 93306; 99284; A9270; G0378; Q9967; 81003; 83721; 87086; 99285

== ENCOUNTER 2018-08-29 13:25 | Outpatient (CLI) | payer MEDICARE, OTHER ==
[2018-08-29 14:19] LABS: ALBUMIN 4.3 g/dL (3.2-5.5); ALBUMIN/GLOBULIN RATIO 1.3 (1.0-2.2); BILIRUBIN,TOTAL 0.9 mg/dL (0.2-1.0); CALCIUM 9.4 mg/dL (8.5-10.3); MAGNESIUM 2.2 mg/dL (1.7-2.8); TOTAL PROTEIN 7.7 g/dL (6.7-8.2)
== END 2018-08-29 13:26 | disposition home or self-care (01) ==
LOC: LAB 13:25
PROVIDERS: ATTEND Specialist
DX: E78.2 Mixed hyperlipidemia (principal); I10 Essential (primary) hypertension; R06.09 Other forms of dyspnea
CPT/HCPCS: 36415; 80053; 83735; 83880

== ENCOUNTER 2018-09-05 13:05 | Outpatient (CLI) | payer MEDICARE, OTHER | END 2018-09-05 13:06 | disposition home or self-care (01) | LOC: LAB 13:05 | PROVIDERS: ATTEND Family Medicine | DX: Z79.01 Long term (current) use of anticoagulants (principal) | CPT/HCPCS: 85610 ==

== ENCOUNTER 2018-09-15 14:07 | Outpatient (CLI) | payer MEDICARE, OTHER ==
[2018-09-15 14:45] LABS: CALCIUM 9.8 mg/dL (8.5-10.3)
== END 2018-09-15 14:08 | disposition home or self-care (01) ==
LOC: LAB 14:07
PROVIDERS: ATTEND Specialist
DX: I48.4 Atypical atrial flutter (principal)
CPT/HCPCS: 36415; 80048; 83735

== ENCOUNTER 2018-10-03 15:00 | Outpatient (CLI) | payer MEDICARE, OTHER | END 2018-10-03 15:01 | disposition home or self-care (01) | LOC: LAB 15:00 | PROVIDERS: ATTEND Family Medicine | DX: Z79.01 Long term (current) use of anticoagulants (principal) | CPT/HCPCS: 85610 ==

== ENCOUNTER 2018-10-06 15:29 | Outpatient (CLI) | payer MEDICARE, OTHER | END 2018-10-06 15:30 | disposition home or self-care (01) | LOC: LAB 15:29 | PROVIDERS: ATTEND Family Medicine | DX: Z79.01 Long term (current) use of anticoagulants (principal) | CPT/HCPCS: 85610 ==

== ENCOUNTER 2018-10-14 11:53 | Outpatient (CLI) | payer MEDICARE, OTHER ==
[2018-10-14 12:58] LABS: INR 3.4 (0.8-1.2)
== END 2018-10-14 11:54 | disposition home or self-care (01) ==
LOC: LAB 11:53
PROVIDERS: ATTEND Family Medicine
DX: Z79.01 Long term (current) use of anticoagulants (principal)
CPT/HCPCS: 36415; 85610

== ENCOUNTER 2018-10-31 14:59 | Outpatient (CLI) | payer MEDICARE, OTHER | END 2018-10-31 15:00 | disposition home or self-care (01) | LOC: LAB 14:59 | PROVIDERS: ATTEND Family Medicine | DX: Z79.01 Long term (current) use of anticoagulants (principal) | CPT/HCPCS: 85610 ==

== ENCOUNTER 2018-12-10 08:45 | Outpatient (CLI) | payer MEDICARE, OTHER ==
[2018-12-10 09:16] LABS: ALBUMIN 4.1 g/dL (3.2-5.5); ALBUMIN/GLOBULIN RATIO 1.5 (1.0-2.2); BILIRUBIN,TOTAL 0.7 mg/dL (0.2-1.0); CALCIUM 9.2 mg/dL (8.5-10.3); CREATININE 1.2 mg/dL (0.4-1.0); TOTAL PROTEIN 6.9 g/dL (6.7-8.2)
[2018-12-14 21:02] LABS: HDL LARGE 5785 nmol/L (3966-11938); LDL PARTICLE NUMBER 785 nmol/L (732-2035); LDL PATTERN A Pattern (A); LDL PEAK SIZE 224.2 Angstrom (> OR = 217.4); LDL SMALL 114 nmol/L (75-452)
== END 2018-12-10 08:46 | disposition home or self-care (01) ==
LOC: LAB 08:45
PROVIDERS: ATTEND Specialist
DX: E78.2 Mixed hyperlipidemia (principal); I10 Essential (primary) hypertension
CPT/HCPCS: 36415; 80053; 81599; 82465; 83704; 83718; 83735; 84478

== ENCOUNTER 2019-01-02 15:20 | Outpatient (CLI) | payer MEDICARE, OTHER | END 2019-01-02 15:21 | disposition home or self-care (01) | LOC: LAB 15:20 | PROVIDERS: ATTEND Family Medicine | DX: Z79.01 Long term (current) use of anticoagulants (principal) | CPT/HCPCS: 85610 ==

== ENCOUNTER 2019-01-07 13:14 | Outpatient (CLI) | payer MEDICARE, OTHER | END 2019-01-07 13:15 | disposition home or self-care (01) | LOC: SC 13:14 | PROVIDERS: ATTEND Nurse Practitioner Family | DX: G47.33 Obstructive sleep apnea (adult) (pediatric) (principal) | CPT/HCPCS: 99205; G0463; 99212 ==

== ENCOUNTER 2019-01-26 14:26 | Outpatient (CLI) | payer MEDICARE, OTHER | END 2019-01-26 14:27 | disposition home or self-care (01) | LOC: LAB 14:26 | PROVIDERS: ATTEND Family Medicine | DX: Z79.01 Long term (current) use of anticoagulants (principal) | CPT/HCPCS: 85610 ==

== ENCOUNTER 2019-02-03 11:36 | Outpatient (CLI) | payer MEDICARE, OTHER ==
[2019-02-03 12:37] LABS: CALCIUM 9.4 mg/dL (8.5-10.3)
[2019-02-03 16:01] LABS: CREATININE 1.3 mg/dL (0.4-1.0); MAGNESIUM 2.1 mg/dL (1.7-2.8)
== END 2019-02-03 11:37 | disposition home or self-care (01) ==
LOC: LAB 11:36
PROVIDERS: ATTEND Specialist
DX: I12.9 Hypertensive chronic kidney disease with stage 1 through stage 4 chronic kidney disease, or unspecified chronic kidney disease (principal); N18.9 Chronic kidney disease, unspecified; E03.9 Hypothyroidism, unspecified
CPT/HCPCS: 36415; 80048; 83735; 84443

== ENCOUNTER 2019-02-13 15:18 | Outpatient (CLI) | payer MEDICARE, OTHER ==
--- NOTE | 2019-02-16 08:48 | DEXA Report ---
Reason: OSTEOPOROSIS Procedure Date: 02/13/2019 Accession Number: [id number] / [id number] Procedure: DEX - Dexa Spine and/or Hip CPT Code: FULL RESULT: EXAM: Dexa Spine and/or Hip DATE: 02/13/2019 4:22 PM CLINICAL HISTORY: OSTEOPOROSIS TECHNIQUE: Dual energy x-ray absorptiometry (DXA) was performed on a [employer]imet[employer] System. Regions measured are the AP Spine, femoral neck, and if needed forearm. COMPARISON: 09/20/2017 In accordance with the International Society for Clinical Densitometry (ISCD) guidelines, data from previous exams may be reanalyzed using current recommendations and techniques. This is done to allow a more accurate basis for comparison with the current study. FINDINGS: The data for the lumbar spine is as follows: BMD (g/cm/cm) T-SCORE Z-SCORE REGION L1 0.901 -1.9 -0.2 L2 1.074 -1.1 0.7 L3 1.128 -0.6 1.1 L4 1.074 -1.1 0.7 TOTAL 1.052 -1.1 0.7 NOTE: All evaluable vertebrae are used for classification The data for the hip is as follows: BMD (g/cm/cm) T-SCORE Z-SCORE REGION Neck 0.638 -2.9 -0.7 TOTAL 0.688 -2.5 -0.4 NOTE: The femoral neck or total proximal femur, whichever is lowest, is used for classification. DXA RESULTS SUMMARY: Spine SCAN DATE AGE BMD CHANGE VS CHANGE VS PREVIOUS PREVIOUS % 02[birth year]/2019 [age] 1[age]052 -0.006 -0.6 09/20/2017 [age] 1[age]058 * Denotes significant change at the 95% confidence level. Denotes dissimilar scan types or analysis methods. DXA RESULTS SUMMARY: Hip SCAN DATE AGE BMD CHANGE VS CHANGE VS PREVIOUS PREVIOUS % [birth year]/2019 [age] 0.688 -0.047* -6.4* 09/20/2017 [age] 0.735 * Denotes significant change at the 95% confidence level. Denotes dissimilar scan types or analysis methods. IMPRESSION: THE WHO CLASSIFICATION BASED ON THE INTERNATIONAL REFERENCE STANDARD IS OSTEOPOROSIS. THE FRACTURE RISK IS HIGH. RECOMMENDATION: Patients with diagnosis of osteoporosis or osteopenia should have regular bone mineral density assessment. For those eligible for Medicare, routine testing is allowed once every 2 years. Testing frequency can be increased for patients who have rapidly progressing disease or for those who are receiving medical therapy to restore bone mass. COMMENT: World Health Organization (WHO) definitions for osteoporosis and osteopenia: NORMAL BMD: T-score at -1.0 or higher, fracture risk is low OSTEOPENIA BMD: T-score between -1.0 and -2.5, fracture risk is increased. OSTEOPOROSIS BMD: T-score at -2.5 or lower, fracture risk is high. National Osteoporosis Foundation recommends: 1. Obtain adequate dietary calcium (at least 1200 mg per day) and vitamin D (400-800 international units per day). 2. Participate, as appropriate, in regular weightbearing and muscle-strengthening exercise. 3. Avoid tobacco use and reduce alcohol and caffeine intake. 4. For more detailed information see the website at www.NOF.org.
== END 2019-02-13 15:19 | disposition home or self-care (01) ==
LOC: DI 15:18
PROVIDERS: ATTEND Family Medicine
DX: M81.0 Age-related osteoporosis without current pathological fracture (principal)
CPT/HCPCS: 77080

== ENCOUNTER 2019-02-18 13:32 | Outpatient (CLI) | payer MEDICARE, OTHER | END 2019-02-18 13:33 | disposition home or self-care (01) | LOC: SC 13:32 | PROVIDERS: ATTEND Nurse Practitioner Family | DX: G47.33 Obstructive sleep apnea (adult) (pediatric) (principal) | CPT/HCPCS: 99214; G0463; 99212 ==

== ENCOUNTER 2019-03-25 13:22 | Outpatient (CLI) | payer MEDICARE, OTHER | END 2019-03-25 13:23 | disposition home or self-care (01) | LOC: SC 13:22 | PROVIDERS: ATTEND Nurse Practitioner Family | DX: G47.33 Obstructive sleep apnea (adult) (pediatric) (principal) | CPT/HCPCS: 99214; G0463; 99212 ==

== ENCOUNTER 2019-04-10 14:44 | Outpatient (CLI) | payer MEDICARE, OTHER | END 2019-04-10 14:45 | disposition home or self-care (01) | LOC: LAB 14:44 | PROVIDERS: ATTEND Family Medicine | DX: Z79.01 Long term (current) use of anticoagulants (principal) | CPT/HCPCS: 85610 ==

== ENCOUNTER 2019-04-17 15:19 | Outpatient (CLI) | payer MEDICARE, OTHER | END 2019-04-17 15:20 | disposition home or self-care (01) | LOC: LAB 15:19 | PROVIDERS: ATTEND Family Medicine | DX: Z79.01 Long term (current) use of anticoagulants (principal) | CPT/HCPCS: 85610 ==

== ENCOUNTER 2019-05-01 15:26 | Outpatient (CLI) | payer MEDICARE, OTHER | END 2019-05-01 15:27 | disposition home or self-care (01) | LOC: LAB 15:26 | PROVIDERS: ATTEND Family Medicine | DX: Z79.01 Long term (current) use of anticoagulants (principal) | CPT/HCPCS: 85610 ==

== ENCOUNTER 2019-05-07 11:53 | Outpatient (CLI) | payer MEDICARE, OTHER ==
[2019-05-07 12:36] LABS: CALCIUM 9.7 mg/dL (8.5-10.3); CREATININE 1.4 mg/dL (0.4-1.0); MAGNESIUM 2.3 mg/dL (1.7-2.8)
== END 2019-05-07 11:54 | disposition home or self-care (01) ==
LOC: LAB 11:53
PROVIDERS: ATTEND Specialist
DX: I12.9 Hypertensive chronic kidney disease with stage 1 through stage 4 chronic kidney disease, or unspecified chronic kidney disease (principal); N18.9 Chronic kidney disease, unspecified
CPT/HCPCS: 36415; 80048; 83735

== ENCOUNTER 2019-05-07 13:50 | Outpatient (CLI) | payer MEDICARE, OTHER | END 2019-05-07 13:51 | disposition home or self-care (01) | LOC: SC 13:50 | PROVIDERS: ATTEND Nurse Practitioner Family | DX: G47.33 Obstructive sleep apnea (adult) (pediatric) (principal); I12.9 Hypertensive chronic kidney disease with stage 1 through stage 4 chronic kidney disease, or unspecified chronic kidney disease; N18.9 Chronic kidney disease, unspecified | CPT/HCPCS: 36415; 80048; 83735; 99215; G0463; 99212 ==

== ENCOUNTER 2019-07-02 | Outpatient (CLI) | payer MEDICARE, OTHER | END 2019-07-02 15:45 | disposition home or self-care (01) | DX: Z79.01 Long term (current) use of anticoagulants (principal) ==

== ENCOUNTER 2019-07-07 12:55 | Outpatient (CLI) | payer MEDICARE, OTHER ==
[2019-07-07 14:10] VITALS: BP 134/70
--- NOTE | 2019-07-07 14:10 | SLEEP CARE CONSULTATION ---
Information from patient questionnaire entered by Concepcion Evans. I have reviewed and concur with the information entered by Concepcion Evans. This document represents the service I personally performed and the decisions made by me, Nicki Rebolledo, RN, MSN, [employer]BI[employer] ME[employer]IC. History of Present Illness Previous diagnosis: Severe, Obstructive Sleep Apnea-Hypopnea Syndrome AHI: 69 Reason for CPAP/BiPAP follow up: other (two month) Equipment obtained from: [employer] Mask style: Nasal (with a chinstrap) Mask brand: Respironics (wisp mask) Backup mask available: Yes Last cushion change: 2 weeks ago HPI additional information: Review of past visit. The adjustment of humidity to 5 had reduced oral dryness. She feels that the dryness is less most days but still some days very dry. She has found a comfortable chinstrap. However, she takes it off for a while in middle because it is too hot. She has tried using the mask without the ch instrap, but her AHI was noted to be higher when she checked. Subjective Patient concerns: reports: mask leak noise (wakes a few times a month to mask leak), dry mouth, nose, throat (dry mouth is less with humdity change but still intermittently very dry and to point it is hard to open her mouth. She is not running out of water. ), other (She is waking about 1.5 and 2.5 hours later to "sputtering the air pressure" she then hits the ramp button and goes back to sleep. This is happening a couple times a week. ). denies: aerophagia, mask discomfort, air blowing in eyes, condensation in mask/hose, nasal congestion, epistaxis Observed to snore while using device: No (sleeps alone ) On therapy, patient: reports: sleeping better (intermittently she has insomnia), awakening more refreshed (sometimes if enough sleep such as 7 hours is optimal. ), being more awake and alert during the day, more rested overall. denies: drowsiness while driving Initial [place] Sleepiness Scale score: 10 Current [place] Sleepiness Scale score: 11 Allergies and Home Medications Known drug allergies: Yes (penicillin, sulfa, lisinopril, magnevist dye, clonidine, norpace, amiodaron) Home medication list reviewed: Yes Allergy and home medication list: Medication Name (generic/name brand) Strength & Dosage Levoxyl (Levothyroxine Sodium) 25mcg tab one daily Nitrostat Sublingual Tablet 0.4mg tab as directed for chest pain Coumadin (Warfarin Sodium) 2mg 6 x wk, 1 mg 1x wk Losartan potassium 25mg tab one daily Tramadol HCL 50mg tab one four times daily as needed Potassium Chloride CARLITOS ER 20meq tab two twice daily Triamcinolone Acetodnide 0.1% Ext. Oint. Apply 2-3 times daily as needed Torsemide 120mg daily Metoprolol Tartrate 25mg tab one twice daily pantoprazole 40mg daily Centrum Silver Tab one daily Vitamin D 1000IU tab five daily Probiotic Cap one daily Tylenol Extra Strength 500mg tab one three times daily as needed Allergy List Penicillin V Potassium Sulfa Lisinopril Magnevist Dye Clonidine Norpace Amiodarone Demerol Reclast (Zoledronic Acid) Fosamax (Alendronate Sodium) Statin Review of Systems Cardiovascular: reports: high blood pressure, irregular heart rate or pulse, leg or foot swelling, have to sleep sitting up Respiratory: reports: shortness of breath Gastrointestinal: reports: heartburn Urinary: reports: incontinence Neurological: reports: gait or balance problems Ear/Nose/Throat: reports: nasal congestion, dry mouth/throat, hoarseness, tonsillectomy, wisdom teeth removed Endocrine: reports: thyroid disease, sluggishness Musculoskeletal: reports: joint pain, neck pain, back pain, muscle pain or cramping, mobility problems, other Immunologic: reports: sneezing Physical Exam Blood Pressure: 134/70 Cuff size: regular Heart Rate: 64 O2 Saturation: 97 Height: 5 ft 1 in Weight (kg): 70.035 kg Body Mass Index: 29.1 BMI Classification: Overweight Impression and Plan 1. Obstructive Sleep Apnea-Hypopnea Syndrome, very severe, with good treatment compliance and elevated residual AHI. On CPAP therapy, there is improved sleep quality and continues to feel more rested overall. For oral dryness, her humidity is at maximum so it seems a better chinstrap is needed and one that she can tolerate to use through the night. I showed her some samples and perhaps one with less surface area may be less hot to wear. Thus she is advised to look online again to order with a smaller surface area and adjustable. I will also slightly adjust her autoCPAP pressure to [id number]. She is to contact me if uncomfortable or more oral venting. Hopefully the new chinstrap will prevent this as well as allow her to use CPAP through the night. I also discussed a manual study if do not meet goals in achieving treatment goal AHI . She would like to defer at this time but discussed it may be necessary. An order was written to notify Caty of problem with past chinstrap given. I also discussed that her treatment goal is to use CPAP with all sleep to improve sleep quality and maximize benefit of treatment. Patient's apnea severity and rationale for treatment to reduce apnea, improve sleep quality and reduce cardiovascular and cerebrovascular events was reviewed. I also reviewed the benefit of consistent device use of CPAP for hypertension, cardiac and TIA history and gerd. Plan Change auto CPAP pressure at 13-14 cm H2O. Notify me if snoring with the mask or feeling that the pressure is too much or too little. Try a new chin strap. Use CPAP with all sleep. Return for follow-up in 2 months, or sooner if concerns arise. I spent 100% of this [50] minute visit face to face with the patient with greater than 50% of this was spent time counseling the patient and coordination of care. Patient had to leave to use restroom due to diuretic.
== END 2019-07-07 12:56 | disposition home or self-care (01) ==
LOC: SC 12:55
PROVIDERS: ATTEND Nurse Practitioner Family
DX: G47.33 Obstructive sleep apnea (adult) (pediatric) (principal)
CPT/HCPCS: 99215; G0463; 99212

== ENCOUNTER 2019-08-14 12:33 | Outpatient (CLI) | payer MEDICARE, OTHER | END 2019-08-14 12:34 | disposition home or self-care (01) | LOC: LAB 12:33 | PROVIDERS: ATTEND Family Medicine | DX: Z79.01 Long term (current) use of anticoagulants (principal) | CPT/HCPCS: 85610 ==

== ENCOUNTER 2019-08-31 14:20 | Outpatient (CLI) | payer MEDICARE, OTHER | END 2019-08-31 14:21 | disposition home or self-care (01) | LOC: LAB 14:20 | PROVIDERS: ATTEND Family Medicine | DX: Z51.81 Encounter for therapeutic drug level monitoring (principal); Z79.01 Long term (current) use of anticoagulants | CPT/HCPCS: 85610 ==

== ENCOUNTER 2019-09-16 13:55 | Outpatient (CLI) | payer MEDICARE, OTHER ==
--- NOTE | 2019-09-16 15:31 | CT Report ---
Reason: VISUAL CHANGES, TIA, ANTICOAGULATION Procedure Date: 09/16/2019 Accession Number: [id number] / [id number] Procedure: CT - HEAD WO CPT Code: FULL RESULT: EXAM: CT HEAD EXAM DATE: 09/16/2019 02:18 PM. CLINICAL HISTORY: Visual changes, TIA, anticoagulation. COMPARISON: HEAD ANGIO 08/19/2018 4:09 PM. TECHNIQUE: Multiaxial CT images were obtained from the foramen magnum to the vertex. Reformats: Sagittal and coronal. IV contrast: None. In accordance with CT protocol optimization, one or more of the following dose reduction techniques were utilized for this exam: automated exposure control, adjustment of mA and/or KV based on patient size, or use of iterative reconstructive technique. FINDINGS: Parenchyma: No intraparenchymal hemorrhage. No evidence of mass, midline shift. Diego-white differentiation is distinct. Extraaxial Spaces: Basal cisterns are preserved. No subdural or epidural collections identified. Ventricles: Normal in size and position. Sinuses and Orbits: Imaged paranasal sinuses, orbits, and mastoids show no significant abnormality. Bones: No evidence of fracture or calvarial defect. Other: None. IMPRESSION: No acute intracranial abnormality. RADIA The call report notification system was initiated by Dr. Frandy Díaz at 03:27 PM on 09/16/2019. The above call report findings were discussed with VAN Bradley on behalf of Dr. Mejia by Dr. Frandy Díaz at 03:33 PM on 09/16/2019.
== END 2019-09-16 13:56 | disposition home or self-care (01) ==
LOC: DI 13:55
PROVIDERS: ATTEND Family Medicine
DX: G45.9 Transient cerebral ischemic attack, unspecified (principal); H53.9 Unspecified visual disturbance; Z79.01 Long term (current) use of anticoagulants
CPT/HCPCS: 70450

== ENCOUNTER 2019-10-02 12:32 | Outpatient (CLI) | payer MEDICARE, OTHER | END 2019-10-02 12:33 | disposition home or self-care (01) | LOC: LAB 12:32 | PROVIDERS: ATTEND Family Medicine | DX: Z79.01 Long term (current) use of anticoagulants (principal) | CPT/HCPCS: 85610 ==

== ENCOUNTER 2019-11-24 12:43 | Outpatient (CLI) | payer MEDICARE, OTHER | END 2019-11-24 12:44 | disposition home or self-care (01) | LOC: LAB 12:43 | PROVIDERS: ATTEND Family Medicine | DX: Z79.01 Long term (current) use of anticoagulants (principal) | CPT/HCPCS: 85610 ==

== ENCOUNTER 2019-12-21 11:25 | Outpatient (CLI) | payer MEDICARE, OTHER ==
[2019-12-21 12:34] VITALS: BP 120/60
--- NOTE | 2019-12-21 12:34 | SLEEP CARE CONSULTATION ---
Information from patient questionnaire entered by Concepcion Evans. I have reviewed and concur with the information entered by Concepcion Evans. This document represents the service I personally performed and the decisions made by me, Nicki Rebolledo, RN, MSN, RISK CONTROL ANALYST. History of Present Illness Previous diagnosis: Very Severe, Obstructive Sleep Apnea-Hypopnea Syndrome AHI: 69 Reason for follow up: other (2 month - pressure change) Equipment type: CPAP Equipment obtained from: [employer] Mask style: Nasal (Wisp) Mask brand: Respironics Backup mask available: Yes Last cushion change: 1 week ago Prior sleep studies: Yes HPI additional information: The pressure was increased for elevation of AHI but patient called in October as the higher pressure was waking her uncomfortable and oral venting. So it was decreased to [id number]. She bought a new chinstrap CPAP Compliance Data - Data Reviewed with Patient Average duration of nightly device use: 6h 9m Compliance rate %: 93.3 Current pressure setting (cmH2O): 10-12 Humidity settin Heated hose settin Average residual AHI: 9.1 Central apnea: 1.5 Obstructive apnea: 4.6 Hypopnea: 3.0 Average large leak: 7s Subjective Patient concerns: reports: mask discomfort (at nasal bridge. ), dry mouth, nose, throat (most days when awakens. Humidifier not using very much water. ). denies: aerophagia, air blowing in eyes, mask leak noise, condensation in mask/hose, nasal congestion, epistaxis Observed to snore while using device: No Current pressure setting perceived as: comfortable On therapy, patient: reports: sleeping better, more rested overall Initial [place] Sleepiness Scale score: 10 Current [place] Sleepiness Scale score: 7 Allergies and Home Medications Home medication list reviewed: Yes (see changes below) Allergy and home medication list: Medication Name (generic/name brand) Strength & Dosage Levoxyl (Levothyroxine Sodium) 25mcg tab one daily Nitrostat Sublingual Tablet 0.4mg tab as directed for chest pain Coumadin (Warfarin Sodium) 2mg 6 x wk, 1 mg 1x wk Losartan potassium 25mg tab one daily Tramadol HCL 50mg tab one four times daily as needed Potassium Chloride CARLITOS ER 20meq tab two twice daily Triamcinolone Acetodnide 0.1% Ext. Oint. Apply 2-3 times daily as needed Torsemide 120mg daily Calcitonin 200IU/Nasal [place] One spray one nostril daily, alternate daily Metoprolol Tartrate 25mg tab one twice daily Vitamin D 1000IU tab five daily Probiotic Cap one daily Tylenol Extra Strength 500mg tab one three times daily as needed Allergy List Penicillin V Potassium Sulfa Lisinopril Magnevist Dye Clonidine Norpace Amiodarone Demerol Reclast (Zoledronic Acid) Fosamax (Alendronate Sodium) Statin Review of Systems Review of systems same as previous: Yes Physical Exam Blood Pressure: 120/60 Cuff size: regular Heart Rate: 60 O2 Saturation: 95 Height: 5 ft 1.5 in Weight: 153 lb 12.8 oz Body Mass Index: 28.5 BMI Classification: Overweight Impression and Plan 1. Obstructive Sleep Apnea-Hypopnea Syndrome, very severe, with good treatment compliance and slightly elevated residual apnea. On CPAP therapy, the patient has better sleep quality and is more rested overall. Patient unable to tolerate higher CPAP pressure ranges to lower residual further so no further adjustment will be made. To reduce nasal bridge soreness, she is to loosen her mask. When I showed her a sample wisp mask and how it should be adjusted, it seems she is over tightening mask. A mask refitting will also be ordered to review her application and see if another style is indicated. The new style of chinstrap is comfortable and no big mask leaks or oral venting , so no adjustment needed. For her oral dryness, I will have the humidifier checked for malfunction as not using much water. Otherwise, she can lower the heated hose to increase moisture delivery. I again reviewed how this can be completed with instructions given. She can also have RT review again if needed when her humidifier is checked for malfunction. However, in discussion it appears she does not have the heat on though compliance summary has it at 3 so hopefully this can be clarified with RT visit. In addition, she can try other oral dryness products such as smart mouth or xylimelts to reduce oral dryness. She is to call dentist to see if other recommendations. She can also try slightly tightening the chinstrap to see if helps but only if comfortable. Her sleep disruption of unknown cause could be her oral dryness or the mask being too tight. If these are corrected and she is still waking up for unknown reason, a sleep diary can be completed. 2 weeks sleep diary given if to complete if continued sleep disruption and advised to make follow up appointment. Questions answered about how to contact [facility] and number given. Patient's apnea severity and rationale for treatment to reduce apnea, improve sleep quality and reduce cardiovascular and cerebrovascular events was reviewed. I also reviewed the benefit of consistent device use of CPAP for hypertension, cardiac disease, cerebrovascular disease, gastric reflux. * Continue CPAP pressure at 10-12 cmH2O * Adjust mask as shown * mask refitting * Adjust heated hose * Check humidifier for malfunction * Contact dentist re oral dryness recommendations. * Notify me if snoring with mask or feeling that the pressure is too much or too little * Complete 2 week sleep diary given if continued sleep disruption. * Call this office if any problems using CPAP * Return for follow up in 1 year, or sooner if concerns arise Time Spent with Patient (minutes): 45 I spent 100% of this visit face to face with the patient with greater than 50% of this was spent time counseling the patient and coordination of care.
== END 2019-12-21 11:26 | disposition home or self-care (01) ==
LOC: SC 11:25
PROVIDERS: ATTEND Nurse Practitioner Family
DX: G47.33 Obstructive sleep apnea (adult) (pediatric) (principal)
CPT/HCPCS: 99215; G0463; 99212

== ENCOUNTER 2019-12-25 12:22 | Outpatient (CLI) | payer MEDICARE, OTHER | END 2019-12-25 12:23 | disposition home or self-care (01) | LOC: LAB 12:22 | PROVIDERS: ATTEND Family Medicine | DX: Z79.01 Long term (current) use of anticoagulants (principal) | CPT/HCPCS: 85610 ==

== ENCOUNTER 2020-01-04 09:29 | Outpatient (CLI) | payer MEDICARE, OTHER ==
[2020-01-04 10:15] LABS: ALBUMIN 4.3 g/dL (3.2-5.5); ALBUMIN/GLOBULIN RATIO 1.5 (1.0-2.2); BILIRUBIN,TOTAL 0.9 mg/dL (0.2-1.0); CALCIUM 9.2 mg/dL (8.5-10.3); CREATININE 1.1 mg/dL (0.4-1.0); TOTAL PROTEIN 7.2 g/dL (6.7-8.2)
[2020-01-07 10:03] LABS: HDL LARGE 4794 nmol/L (3966-11938); LDL PARTICLE NUMBER 1133 nmol/L (732-2035); LDL PATTERN A Pattern (A); LDL PEAK SIZE 225.5 Angstrom (> OR = 217.4); LDL SMALL 165 nmol/L (75-452)
== END 2020-01-04 09:30 | disposition home or self-care (01) ==
LOC: LAB 09:29
PROVIDERS: ATTEND Specialist
DX: E78.2 Mixed hyperlipidemia (principal); I48.4 Atypical atrial flutter; I10 Essential (primary) hypertension
CPT/HCPCS: 36415; 80053; 80061; 81599; 83704; 83735

== ENCOUNTER 2020-01-22 11:19 | Outpatient (CLI) | payer MEDICARE, OTHER ==
[2020-01-22 11:35] LABS: BASOPHILS # (AUTO) 0.1 10^3/uL (0.0-0.1); BASOPHILS % (AUTO) 1.3 %; EOSINOPHILS # (AUTO) 0.2 10^3/uL (0.0-0.7); EOSINOPHILS % (AUTO) 4.8 %; HGB - HEMOGLOBIN 10.1 g/dL (12.0-16.0); LYMPHOCYTES # (AUTO) 0.6 10^3/uL (1.5-3.5); LYMPHOCYTES % (AUTO) 13.2 %; MEAN CORPUSCULAR HEMOGLOBIN 26.1 pg (27.0-31.0); MEAN CORPUSCULAR HGB CONC 29.3 g/dL (32.0-36.0); MEAN CORPUSCULAR VOLUME 89.1 fL (81.0-99.0); MEAN PLATELET VOLUME 9.2 fL (7.9-10.8); MONOCYTES # (AUTO) 0.4 10^3/uL (0.0-1.0); MONOCYTES % (AUTO) 9.3 %; NEUTROPHILS # (AUTO) 3.3 10^3/uL (1.5-6.6); PLT - PLATELET COUNT 227 10^3/uL (130-450); RED BLOOD COUNT 3.87 10^6/uL (4.20-5.40); RED CELL DISTRIBUTION WIDTH 14.6 % (12.0-15.0); WHITE BLOOD COUNT 4.6 x10^3/uL (4.8-10.8)
[2020-01-22 11:51] LABS: CALCIUM 9.4 mg/dL (8.5-10.3); CREATININE 1.3 mg/dL (0.4-1.0); MAGNESIUM 2.4 mg/dL (1.7-2.8)
== END 2020-01-22 11:20 | disposition home or self-care (01) ==
LOC: LAB 11:19
PROVIDERS: ATTEND Specialist
DX: I11.0 Hypertensive heart disease with heart failure (principal); I50.30 Unspecified diastolic (congestive) heart failure; R06.09 Other forms of dyspnea; E78.2 Mixed hyperlipidemia
CPT/HCPCS: 36415; 80048; 83735; 83880; 85025

== ENCOUNTER 2020-02-01 08:00 | Outpatient (CLI) | payer MEDICARE, OTHER ==
[2020-02-01 18:59] LABS: % IRON SATURATION 10 % (20-50); IRON 44 ug/dL (28-170); TOTAL IRON BINDING CAPACITY 452 ug/dL (250-450); TRANSFERRIN 323 mg/dL (192-382)
[2020-02-01 19:02] LABS: INR 2.6 (0.8-1.2); PT - PROTHROMBIN TIME 27.7 secs (9.9-12.6)
[2020-02-01 19:11] LABS: FERRITIN 37.6 ng/mL (11.0-306.8)
== END 2020-02-01 23:59 | disposition home or self-care (01) ==
LOC: LAB.WCP 08:00
PROVIDERS: ATTEND Family Medicine
DX: D64.9 Anemia, unspecified (principal); Z79.01 Long term (current) use of anticoagulants
CPT/HCPCS: 36415; 82607; 82728; 82746; 83540; 84466; 85610

== ENCOUNTER 2020-02-09 08:00 | Outpatient (CLI) | payer MEDICARE, OTHER | END 2020-02-09 23:59 | disposition home or self-care (01) | LOC: LAB.WCP 08:00 | PROVIDERS: ATTEND Family Medicine | DX: Z53.9 Procedure and treatment not carried out, unspecified reason (principal) ==

== ENCOUNTER 2020-03-15 14:17 | Outpatient (CLI) | payer MEDICARE, OTHER | END 2020-03-15 14:18 | disposition home or self-care (01) | LOC: LAB 14:17 | PROVIDERS: ATTEND Family Medicine | DX: Z79.01 Long term (current) use of anticoagulants (principal) | CPT/HCPCS: 85610 ==

== ENCOUNTER 2020-03-29 11:05 | Outpatient (CLI) | payer MEDICARE, OTHER | END 2020-03-29 11:06 | disposition home or self-care (01) | LOC: LAB 11:05 | PROVIDERS: ATTEND Family Medicine | DX: Z79.01 Long term (current) use of anticoagulants (principal) | CPT/HCPCS: 85610 ==

== ENCOUNTER 2020-06-17 11:54 | Outpatient (CLI) | payer MEDICARE, OTHER | END 2020-06-17 11:55 | disposition home or self-care (01) | LOC: LAB 11:54 | PROVIDERS: ATTEND Family Medicine | DX: Z79.01 Long term (current) use of anticoagulants (principal) | CPT/HCPCS: 85610 ==

== ENCOUNTER 2020-07-13 10:16 | Outpatient (CLI) | payer MEDICARE, OTHER ==
[2020-07-13 10:52] LABS: CALCIUM 9.6 mg/dL (8.5-10.3); CREATININE 1.2 mg/dL (0.4-1.0)
== END 2020-07-13 10:17 | disposition home or self-care (01) ==
LOC: LAB 10:16
PROVIDERS: ATTEND Specialist
DX: E87.6 Hypokalemia (principal); Z79.01 Long term (current) use of anticoagulants
CPT/HCPCS: 36415; 80048; 85610

== ENCOUNTER 2020-07-25 13:04 | Outpatient (CLI) | payer MEDICARE, OTHER ==
[2020-07-25 13:25] LABS: CALCIUM 9.5 mg/dL (8.5-10.3); CREATININE 1.3 mg/dL (0.4-1.0)
== END 2020-07-25 13:05 | disposition home or self-care (01) ==
LOC: LAB 13:04
PROVIDERS: ATTEND Nurse Practitioner
DX: I50.30 Unspecified diastolic (congestive) heart failure (principal)
CPT/HCPCS: 36415; 80048

== ENCOUNTER 2020-07-27 08:00 | Outpatient (CLI) | payer MEDICARE, OTHER | END 2020-07-27 23:59 | disposition home or self-care (01) | LOC: LAB.WCP 08:00 | PROVIDERS: ATTEND Family Medicine | DX: Z95.3 Presence of xenogenic heart valve (principal); Z79.01 Long term (current) use of anticoagulants ==

== ENCOUNTER 2020-08-01 13:22 | Outpatient (CLI) | payer MEDICARE, OTHER ==
[2020-08-01 13:48] LABS: CALCIUM 9.9 mg/dL (8.5-10.3); CREATININE 1.1 mg/dL (0.4-1.0); PHOSPHORUS 4.1 mg/dL (2.5-4.6)
== END 2020-08-01 13:23 | disposition home or self-care (01) ==
LOC: LAB 13:22
PROVIDERS: ATTEND Family Medicine
DX: E87.6 Hypokalemia (principal); Z79.01 Long term (current) use of anticoagulants
CPT/HCPCS: 36415; 80048; 83735; 84100; 85610

== ENCOUNTER 2020-08-10 11:13 | Outpatient (CLI) | payer MEDICARE, OTHER | END 2020-08-10 11:14 | disposition home or self-care (01) | LOC: LAB 11:13 | PROVIDERS: ATTEND Family Medicine | DX: Z79.01 Long term (current) use of anticoagulants (principal) | CPT/HCPCS: 85610 ==

== ENCOUNTER 2020-08-18 08:00 | Outpatient (CLI) | payer MEDICARE, OTHER | END 2020-08-18 23:59 | disposition home or self-care (01) | LOC: LAB.WCP 08:00 | PROVIDERS: ATTEND Family Medicine | DX: Z79.01 Long term (current) use of anticoagulants (principal) ==

== ENCOUNTER 2020-09-12 13:08 | Outpatient (CLI) | payer MEDICARE, OTHER ==
--- NOTE | 2020-09-16 16:00 | Mammography Report ---
BILATERAL DIGITAL DIAGNOSTIC MAMMOGRAM: 09/12/2020 CLINICAL: Diffuse left breast pain. No prior exams were available for comparison. There are scattered fibroglandular elements in both br easts. There are benign coarse calcifications in the right breast. No significant masses, calcifications, or other findings are seen in either breast. IMPRESSION: BENIGN There is no abnormality seen in the left breast to correspond with the diffuse pain, however, clinica l correlation is recommended. There is no mammographic evidence of malignancy. A 1 year screening mammogram is recommended. This exam was interpreted at Station ID: [id number]. NOTE: For mammograms, a report in lay terms will be sent to the patient. Approximately 15% of breast malignancies will not be visualized mammographically. In the management of a palpable breast mass, a negative mammogram must not discourage biopsy of a clinically suspicious lesion. Electronically Signed By: Braxton damon/yakovrad:09/16/2020 09:39:40 ACR BI-RADS Category 2: Benign Finding(s) 3342F PARENCHYMAL PATTERN: (A) - The breast(s) demonstrate(s) scattered fibroglandular densities. BI-RADS CATEGORY: (2) - 2 RECOMMENDATION: (ANNUAL) - Recommend routine annual screening mammography. [id number] 1 year screening LATERALITY: (B)
== END 2020-09-12 13:09 | disposition home or self-care (01) ==
LOC: DI 13:08
PROVIDERS: ATTEND Family Medicine
DX: N64.4 Mastodynia (principal)
CPT/HCPCS: 77066

== ENCOUNTER 2020-09-30 08:00 | Outpatient (CLI) | payer MEDICARE, OTHER | END 2020-09-30 23:59 | disposition home or self-care (01) | LOC: LAB.WCP 08:00 | PROVIDERS: ATTEND Family Medicine | DX: Z79.01 Long term (current) use of anticoagulants (principal) ==

== ENCOUNTER 2020-10-05 14:07 | Outpatient (CLI) | payer MEDICARE, OTHER | END 2020-10-05 14:08 | disposition home or self-care (01) | LOC: LAB 14:07 | PROVIDERS: ATTEND Family Medicine | DX: Z79.01 Long term (current) use of anticoagulants (principal) | CPT/HCPCS: 85610 ==

== ENCOUNTER 2020-11-04 10:53 | Outpatient (CLI) | payer MEDICARE, OTHER ==
[2020-11-04 11:36] LABS: ALBUMIN 4.3 g/dL (3.2-5.5); ALBUMIN/GLOBULIN RATIO 1.2 (1.0-2.2); CALCIUM 10.3 mg/dL (8.5-10.3); CREATININE 1.9 mg/dL (0.4-1.0); MAGNESIUM 1.9 mg/dL (1.7-2.8); TOTAL PROTEIN 7.8 g/dL (6.7-8.2)
== END 2020-11-04 10:54 | disposition home or self-care (01) ==
LOC: LAB 10:53
PROVIDERS: ATTEND Internal Medicine Nephrology
DX: N17.9 Acute kidney failure, unspecified (principal); N18.32 Chronic kidney disease, stage 3b; I50.22 Chronic systolic (congestive) heart failure; I48.4 Atypical atrial flutter; Z79.01 Long term (current) use of anticoagulants; I13.0 Hypertensive heart and chronic kidney disease with heart failure and stage 1 through stage 4 chronic kidney disease, or unspecified chronic kidney disease
CPT/HCPCS: 36415; 80053; 83735; 83970; 84100; 85610

== ENCOUNTER 2020-11-18 11:24 | Outpatient (CLI) | payer MEDICARE, OTHER | END 2020-11-18 11:25 | disposition home or self-care (01) | LOC: LAB 11:24 | PROVIDERS: ATTEND Family Medicine | DX: Z79.01 Long term (current) use of anticoagulants (principal) | CPT/HCPCS: 85610 ==

== ENCOUNTER 2020-11-22 12:06 | Outpatient (CLI) | payer MEDICARE, OTHER ==
[2020-11-22 12:33] LABS: EOSINOPHILS # (AUTO) 0.2 10^3/uL (0.0-0.7); EOSINOPHILS % (AUTO) 4.5 %; HCT - HEMATOCRIT 37.4 % (37.0-47.0); LYMPHOCYTES # (AUTO) 0.7 10^3/uL (1.5-3.5); MEAN CORPUSCULAR HEMOGLOBIN 30.5 pg (27.0-31.0); MEAN CORPUSCULAR HGB CONC 32.1 g/dL (32.0-36.0); MEAN CORPUSCULAR VOLUME 94.9 fL (81.0-99.0); MEAN PLATELET VOLUME 8.8 fL (7.9-10.8); MONOCYTES # (AUTO) 0.4 10^3/uL (0.0-1.0); MONOCYTES % (AUTO) 9.9 %; NEUTROPHILS # (AUTO) 2.6 10^3/uL (1.5-6.6); NEUTROPHILS % (AUTO) 67.1 %; PLT - PLATELET COUNT 171 10^3/uL (130-450); RED BLOOD COUNT 3.94 10^6/uL (4.20-5.40); RED CELL DISTRIBUTION WIDTH 14.3 % (12.0-15.0); WHITE BLOOD COUNT 3.8 x10^3/uL (4.8-10.8)
--- OUTSIDE RECORDS SUMMARY | 2020-12-13 23:55 | EXTERNAL MEDICAL SUMMARY RPT | Continuity of Care Document ---
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 2020-10-05 13:00 VENOUS INSUFFICIENCY (CHRONIC) [facility] (PERIPHERAL) 2020-10-05 13:00 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 2020-10-05 14:07 [facility]DC (CURRENT) USE OF [facility] ANTICOAGULANTS 2020-10-12 00:00:00 Health-related behavior [facility] 2020-10-12 00:00:00 Tobacco use and exposure [facility] 2020-10-12 00:00:00 Exercise [facility] 2020-10-12 00:00:00 Never smoker [facility] 2020-10-12 00:00:00 [facility] use [facility] 2020-10-12 00:00:00 Tobacco [facility] status [facility] [place] [facility] 2020-10-12 10:00 HEART FAILURE, UNSPECIFIED [facility] 2020-10-12 10:00 VARICOSE VEINS OF RIGHT LOWER [facility] EXTREMITY WITH ULCER OF CALF 2020-10-12 10:00 VARICOSE VEINS OF LEFT LOWER [facility] EXTREMITY WITH ULCER OF CALF 2020-10-12 10:00 VENOUS INSUFFICIENCY (CHRONIC) [facility] (PERIPHERAL) 2020-10-12 10:00 NON-PRS CHRONIC ULCER OF RIGHT [facility] 2020-10-12 10:00 NON-PRS CHRONIC ULCER OF LEFT [facility] 2020-10-12 10:00 [facility] (CURRENT) USE OF [facility] ANTICOAGULANTS 2020-10-12 10:00 OTHER [facility] (CURRENT) DRUG [facility] THERAPY 2020-10-19 14:30 HEART FAILURE, UNSPECIFIED [facility] 2020-10-19 14:30 VARICOSE VEINS OF RIGHT LOWER [facility] EXTREMITY WITH ULCER OF CALF 2020-10-19 14:30 VARICOSE VEINS OF LEFT LOWER [facility] EXTREMITY WITH ULCER OF CALF 2020-10-19 14:30 VENOUS INSUFFICIENCY (CHRONIC) [facility] (PERIPHERAL) 2020-10-19 14:30 ALLERGIC CONTACT DERMATITIS DUE 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 LATEX [facility] disopyramide phosphate * [facility] gadopentetate dimeglumine * [facility] meperidine HCl * [facility] Penicillins [facility] Sulfa (Sulfonamide Antibiotics) [facility] lisinopril [facility] amiodarone [facility] clonidine [facility] NO KNOWN ENVIRONMENTAL ALLERGIES [facility] SULFA ANTIBIOTICS [facility] No Known Drug Allergies [facility] PENICILLINS [facility] SULFA (SULFONAMIDE ANTIBIOTICS) [facility] NO KNOWN ALLERGIES [facility] PENICILLIN G POTASSIUM [facility] edical [place] CEPHALEXIN [facility] SULFASALAZINE [facility] PHENAZOPYRIDINE HCL [facility] LATEX [facility] AMOXICILLIN-POT CLAVULANATE [facility] disopyramide phosphate * [facility] gadopentetate dimeglumine * [facility] meperidine HCl * [facility] Penicillins [facility] Sulfa (Sulfonamide Antibiotics) [facility] lisinopril [facility] amiodarone [facility] clonidine [facility] Medications date description facility null [facility] [place] [facility] null [facility] [place] [facility] TRAMADOL HCL [facility] [place] [facility] TRAMADOL HCL [facility] [place] [facility] 2020-10-12 00:00:00 null [facility] [place] [facility] 2020-10-12 00:00:00 null [facility] [place] [facility] Procedures date description facility 2020-09-30 00:00:00 POC PROTHROMBIN TIME [facility] [place] [facility] date description facility 2020-09-30 00:00:00 ANTICOAG MGMT PT [facility] [place] [facility] date description facility [facility] [place] [facility] date description facility 2020-10-05 00:00:00 ANTICOAG MGMT PT [facility] [place] [facility] date description facility 2020-10-05 00:00:00 [facility] [place] [facility] date description facility 2020-10-12 00:00:00 First Vx - Ix admin for [facility] Care Medicare patients [place] [facility] date description facility 2020-10-12 00:00:00 Fluzone High-Dose Intramuscular [facility] Suspension [place] [facility] date description facility 2020-10-12 00:00:00 [facility] [place] [facility] date description facility 2020-11-07 00:00:00 ANTICOAG MGMT PT [facility] [place] [facility] date description facility 2020-11-07 [facility] [place] [facility] date description facility 2020-11-18 00:00:00 ANTICOAG MGMT PT [facility] [place] [facility] date description facility 2020-11-18 [facility] [place] [facility] date description facility 2020-12-07 00:00:00 ANTICOAG MGMT PT [facility] [place] [facility] date description facility 2020-12-07 00:00:00 [facility] [place] [facility] Results Social History date description facility 2020-10-12 00:00:00 Never smoker [facility] [place] [facility] Social History date description facility 2020-10-12 00:00:00 [facility] [place] [facility] date description facility [id number]
== END 2020-11-22 12:07 | disposition home or self-care (01) ==
LOC: LAB 12:06
PROVIDERS: ATTEND Specialist
DX: R06.09 Other forms of dyspnea (principal)
CPT/HCPCS: 36415; 85025

== ENCOUNTER 2020-12-06 11:06 | Outpatient (CLI) | payer MEDICARE, OTHER | END 2020-12-06 11:07 | disposition home or self-care (01) | LOC: LAB 11:06 | PROVIDERS: ATTEND Family Medicine | DX: Z79.01 Long term (current) use of anticoagulants (principal) | CPT/HCPCS: 85610 ==

== ENCOUNTER 2020-12-21 10:56 | Outpatient (CLI) | payer MEDICARE, OTHER | END 2020-12-21 10:57 | disposition home or self-care (01) | LOC: LAB 10:56 | PROVIDERS: ATTEND Family Medicine | DX: Z79.01 Long term (current) use of anticoagulants (principal) | CPT/HCPCS: 85610 ==

== ENCOUNTER 2021-01-03 12:40 | Outpatient (CLI) | payer MEDICARE, OTHER ==
--- NOTE | 2021-01-03 13:33 | SLEEP CARE CONSULTATION ---
Information from patient questionnaire entered by Susan Hartmann. I have reviewed and concur with the information entered by Susan Hartmann. This document represents the service I personally performed and the decisions made by , Eda Riley ARNP. History of Present Illness Service Date and Time: 01/03/2021 1240 Previous diagnosis: Very Severe, Obstructive Sleep Apnea-Hypopnea Syndrome AHI: 69 (in 2007) Reason for follow up: annual (last seen 12/2019) Equipment type: CPAP Equipment obtained from: [employer] (She has not heard from them since Covid) Mask style: Nasal Mask brand: Respironics Backup mask available: No (will need to keep mask when replaced) Last cushion change: about a year Prior sleep studies: Yes Year and Where: 2007 - [facility] Type of Sleep Study: Polysomnography HPI additional information: SAGRARIO HUTCHINSON was diagnosed to have very severe, AHI 69, obstructive sleep apnea-hypopnea syndrome and returned today for CPAP therapy annual follow-up. CPAP Compliance Data - Data Reviewed with Patient Average duration of nightly device use: 5 hr 19 min Compliance rate %: 82.2 (180 days) Current pressure setting (cmH2O): 10-12 Humidity settin Heated hose settin Average residual AHI: 9.3 Average large leak: 12 min 32 sec Subjective Patient concerns: reports: air blowing in eyes, dry mouth, nose, throat. denies: aerophagia, mask discomfort, mask leak noise, condensation in mask/hose, nasal congestion, epistaxis, other Observed to snore while using device: No Current pressure setting perceived as: comfortable On therapy, patient: reports: sleeping better, awakening more refreshed, being more awake and alert during the day, more rested overall. denies: drowsiness while driving Initial [place] Sleepiness Scale score: 7 (in 2006) Current [place] Sleepiness Scale score: 9 Allergies and Home Medications Home medication list reviewed: Yes (no changes) Review of Systems Review of systems same as previous: No (poor circulation in legs, pacemaker, aortic replacement) Physical Exam Heart Rate: 57 O2 Saturation: 91 Height: 5 ft 1 in Weight: 136 lb Body Mass Index: 25.7 BMI Classification: Overweight Impression and Plan 1. Obstructive Sleep Apnea-Hypopnea Syndrome, very severe, with good treatment compliance and fair apnea control with an elevated residual AHI. On CPAP ther apy, the patient has better sleep quality and is more rested overall. She feels at the pressures near 12 that she "gurgles", has to apply the ramp feature down to 8.5 which resolves the sounds and she is able to go back to sleep. She feels like the pressure is too much at the onset of the night. She would like to try a lower pressure. Her residual AHI is elevated but she has not tolerated higher p ressure in the past. I will change her pressure to 8-12 cmH2O to accommodate for the lower pressure need but still allow the higher pressure for better AHI control. Patient's apnea severity and rationale for treatment to reduce apnea, improve sleep quality and reduce cardiovascular and cerebrovascular events was reviewed. I also reviewed the benefit of consistent device use of CPAP for hypertension, cardiac disease, cerebrovascular disease, and gastric reflux. * Update supplies * Change auto CPAP pressure to 8-12 cmH2O * Notify me if snoring with mask or feeling that the pressure is too much or too little * Attempt to lose weight * Call this office if any problems using CPAP * Return for follow up in 1-2 months, or sooner if concerns arise Counseling Topics: Spare mask Visit Type: In Office Time Spent with Patient (minutes): 25 Provider Statement: I spent 100% of the Face to Face Visit with the patient with greater than 50% spent counseling the patient and coordination of care.
== END 2021-01-03 12:41 | disposition home or self-care (01) ==
LOC: SC 12:40
PROVIDERS: ATTEND Nurse Practitioner Family
DX: G47.33 Obstructive sleep apnea (adult) (pediatric) (principal); E66.3 Overweight; Z68.25 Body mass index [BMI] 25.0-25.9, adult
CPT/HCPCS: 99213; G0463; 99212

== ENCOUNTER 2021-01-31 10:23 | Outpatient (CLI) | payer MEDICARE, OTHER | END 2021-01-31 10:24 | disposition home or self-care (01) | LOC: LAB 10:23 | PROVIDERS: ATTEND Family Medicine | DX: Z79.01 Long term (current) use of anticoagulants (principal) | CPT/HCPCS: 85610 ==

== ENCOUNTER 2021-02-07 09:07 | Outpatient (CLI) | payer MEDICARE, OTHER ==
[2021-02-07 10:47] LABS: ALBUMIN 4.4 g/dL (3.2-5.5); ALBUMIN/GLOBULIN RATIO 1.4 (1.0-2.2); CREATININE 1.8 mg/dL (0.4-1.0); MAGNESIUM 2.4 mg/dL (1.7-2.8); TOTAL PROTEIN 7.6 g/dL (6.7-8.2)
[2021-02-07 10:48] LABS: CALCIUM 10.4 mg/dL (8.5-10.3); POTASSIUM 4.4 mmol/L (3.5-5.0)
== END 2021-02-07 09:08 | disposition home or self-care (01) ==
LOC: LAB 09:07
PROVIDERS: ATTEND Specialist
DX: E78.5 Hyperlipidemia, unspecified (principal); I10 Essential (primary) hypertension
CPT/HCPCS: 36415; 80053; 80061; 81599; 83704; 83735

== ENCOUNTER 2021-03-08 08:52 | Outpatient (CLI) | payer MEDICARE, OTHER ==
[2021-03-08 09:29] LABS: BASOPHILS # (AUTO) 0.1 10^3/uL (0.0-0.1); BASOPHILS % (AUTO) 1.8 %; EOSINOPHILS # (AUTO) 0.3 10^3/uL (0.0-0.7); EOSINOPHILS % (AUTO) 10.2 %; HCT - HEMATOCRIT 35.7 % (37.0-47.0); HGB - HEMOGLOBIN 11.3 g/dL (12.0-16.0); LYMPHOCYTES # (AUTO) 0.6 10^3/uL (1.5-3.5); LYMPHOCYTES % (AUTO) 17.7 %; MEAN CORPUSCULAR HEMOGLOBIN 30.2 pg (27.0-31.0); MEAN CORPUSCULAR HGB CONC 31.7 g/dL (32.0-36.0); MEAN CORPUSCULAR VOLUME 95.5 fL (81.0-99.0); MEAN PLATELET VOLUME 9.1 fL (7.9-10.8); MONOCYTES # (AUTO) 0.4 10^3/uL (0.0-1.0); MONOCYTES % (AUTO) 11.4 %; NEUTROPHILS % (AUTO) 58.3 %; PLT - PLATELET COUNT 143 10^3/uL (130-450); RED BLOOD COUNT 3.74 10^6/uL (4.20-5.40); RED CELL DISTRIBUTION WIDTH 13.8 % (12.0-15.0); WHITE BLOOD COUNT 3.3 x10^3/uL (4.8-10.8)
[2021-03-08 09:50] LABS: THYROID STIMULATING HORMONE 2.99 uIU/mL (0.34-5.60)
[2021-03-08 10:57] LABS: ALBUMIN 4.3 g/dL (3.2-5.5); ALBUMIN/GLOBULIN RATIO 1.4 (1.0-2.2); CALCIUM 10.3 mg/dL (8.5-10.3); CREATININE 1.9 mg/dL (0.4-1.0); MAGNESIUM 2.5 mg/dL (1.7-2.8); TOTAL PROTEIN 7.4 g/dL (6.7-8.2)
== END 2021-03-08 08:53 | disposition home or self-care (01) ==
LOC: LAB 08:52
PROVIDERS: ATTEND Family Medicine
DX: I48.4 Atypical atrial flutter (principal); Z79.01 Long term (current) use of anticoagulants; I11.0 Hypertensive heart disease with heart failure; I50.22 Chronic systolic (congestive) heart failure
CPT/HCPCS: 36415; 80053; 83735; 84443; 85025; 85610

== ENCOUNTER 2021-03-14 12:38 | Outpatient (CLI) | payer MEDICARE, OTHER ==
--- NOTE | 2021-03-14 13:23 | SLEEP CARE CONSULTATION ---
Information from patient questionnaire entered by Susan Hartmann. I have reviewed and concur with the information entered by Susan Hartmann. This document represents the service I personally performed and the decisions made by , Eda Riley ARNP. History of Present Illness Service Date and Time: 03/14/2021 1238 Previous diagnosis: Very Severe, Obstructive Sleep Apnea-Hypopnea Syndrome AHI: 69 (in 2007) Reason for follow up: other (2 month with pressure change) Equipment type: CPAP Equipment obtained from: [employer] (getting supplies as needed) Mask style: Nasal Backup mask available: Yes (old mask) Last cushion change: over a month Prior sleep studies: Yes Year and Where: 2007 - [facility] Type of Sleep Study: Polysomnography HPI additional information: SAGRARIO HUTCHINSON was diagnosed to have very severe, AHI 69, obstructive sleep apnea-hypopnea syndrome and returned today for CPAP therapy 2 month pressure change follow-up. CPAP Compliance Data - Data Reviewed with Patient Average duration of nightly device use: 5 hr 11 min Compliance rate %: 88.3 (60 days) Current pressure setting (cmH2O): 8-12 Humidity settin Heated hose settin Average residual AHI: 12.8 Central apnea: 2.0 Obstructive apnea: 6.8 Average large leak: 7 min 26 sec Subjective Patient concerns: reports: mask discomfort, mask leak noise, dry mouth, nose, throat. denies: aerophagia, air blowing in eyes, condensation in mask/hose, nasal congestion, epistaxis, other Current pressure setting perceived as: too high On therapy, patient: reports: sleeping better, awakening more refreshed, being more awake and alert during the day, more rested overall. denies: drowsiness while driving Initial [place] Sleepiness Scale score: 7 (in 2006) Current [place] Sleepiness Scale score: 11 Allergies and Home Medications Home medication list reviewed: Yes (no changes) Review of Systems Review of systems same as previous: Yes (no changes) Physical Exam Heart Rate: 74 O2 Saturation: 99 Height: 5 ft 1 in Weight: 137 lb Body Mass Index: 25.9 BMI Classification: Overweight Impression and Plan 1. Obstructive Sleep Apnea-Hypopnea Syndrome, very severe, with good treatment compliance and fair apnea control with elevated residual AHI. On CPAP therapy, the patient has better sleep quality and is more rested overall. The patients p ressure will be changed to autoCPAP 12-14 cmH20 for elevation of residual AHI. I reviewed her past chart notes and this pressure seemed to give the best apnea control. Patient advised to contact me if pressure change is uncomfortable so that it can be adjusted. Goals for apnea control discussed. Patient's apnea severity and rationale for treatment to reduce apnea, improve sleep quality and reduce cardiovascular and cerebrovascular events was reviewed. I also reviewed the benefit of consistent device use of CPAP for hypertension, cardiac disease, cerebrovascular disease, and gastric reflux. * Change auto CPAP pressure to 12-14 cmH2O * Notify me if snoring with mask or feeling that the pressure is too much or too little * Try to lose weight * Call this office if any problems using CPAP * Return for follow up in 1-2 months, or sooner if concerns arise Counseling Topics: Spare mask, Weight loss health impact Visit Type: In Office Time Spent with Patient (minutes): 25 Provider Statement: I spent 100% of the Face to Face Visit with the patient with greater than 50% spent counseling the patient and coordination of care.
== END 2021-03-14 12:39 | disposition home or self-care (01) ==
LOC: SC 12:38
PROVIDERS: ATTEND Nurse Practitioner Family
DX: G47.33 Obstructive sleep apnea (adult) (pediatric) (principal); E66.3 Overweight; Z68.25 Body mass index [BMI] 25.0-25.9, adult
CPT/HCPCS: 99213; G0463; 99212

== ENCOUNTER 2021-04-07 13:54 | Outpatient (CLI) | payer MEDICARE, OTHER | END 2021-04-07 13:55 | disposition home or self-care (01) | LOC: LAB 13:54 | PROVIDERS: ATTEND Family Medicine | DX: Z79.01 Long term (current) use of anticoagulants (principal) | CPT/HCPCS: 36416; 85610 ==

== ENCOUNTER 2021-04-21 13:51 | Outpatient (CLI) | payer MEDICARE, OTHER | END 2021-04-21 13:52 | disposition home or self-care (01) | LOC: LAB 13:51 | PROVIDERS: ATTEND Family Medicine | DX: Z79.01 Long term (current) use of anticoagulants (principal) | CPT/HCPCS: 36416; 85610 ==

== ENCOUNTER 2021-05-03 09:42 | Outpatient (CLI) | payer MEDICARE, OTHER | END 2021-05-03 09:43 | disposition home or self-care (01) | LOC: LAB 09:42 | PROVIDERS: ATTEND Family Medicine | DX: Z79.01 Long term (current) use of anticoagulants (principal) | CPT/HCPCS: 36416; 85610 ==

== ENCOUNTER 2021-05-23 10:35 | Outpatient (CLI) | payer MEDICARE, OTHER | END 2021-05-23 10:36 | disposition home or self-care (01) | LOC: LAB 10:35 | PROVIDERS: ATTEND Family Medicine | DX: Z79.01 Long term (current) use of anticoagulants (principal) | CPT/HCPCS: 36416; 85610 ==

== ENCOUNTER 2021-05-30 10:05 | Outpatient (CLI) | payer MEDICARE, OTHER ==
[2021-05-30 10:46] LABS: ALBUMIN 4.4 g/dL (3.2-5.5); ALBUMIN/GLOBULIN RATIO 1.3 (1.0-2.2); BILIRUBIN,TOTAL 0.9 mg/dL (0.2-1.0); CALCIUM 9.5 mg/dL (8.5-10.3); CREATININE 1.5 mg/dL (0.4-1.0); MAGNESIUM 2.2 mg/dL (1.7-2.8); POTASSIUM 4.2 mmol/L (3.5-5.0); TOTAL PROTEIN 7.7 g/dL (6.7-8.2)
== END 2021-05-30 10:06 | disposition home or self-care (01) ==
LOC: LAB 10:05
PROVIDERS: ATTEND Specialist
DX: I50.22 Chronic systolic (congestive) heart failure (principal); I48.4 Atypical atrial flutter
CPT/HCPCS: 36415; 80053; 83735

== ENCOUNTER 2021-05-31 13:15 | Outpatient (CLI) | payer MEDICARE, OTHER ==
--- NOTE | 2021-05-31 13:36 | SLEEP CARE CONSULTATION ---
Information from patient questionnaire entered by Susan Hartmann. I have reviewed and concur with the information entered by Ssuan Hartmann. This document represents the service I personally performed and the decisions made by , Eda Riley ARNP. History of Present Illness Service Date and Time: 05/31/2021 1315 Previous diagnosis: Very Severe, Obstructive Sleep Apnea-Hypopnea Syndrome AHI: 69 (in 2007) Reason for follow up: other (2 month with pressure change) Equipment type: CPAP Equipment obtained from: [employer] (getting supplies as needed) Mask style: Nasal pillows Backup mask available: Yes (other mask) Last cushion change: 1 month Prior sleep studies: Yes Year and Where: 2007 - [facility] Type of Sleep Study: Polysomnography HPI additional information: SAGRARIO HUTCHINSON was diagnosed to have very severe, AHI 69, obstructive sleep apnea-hypopnea syndrome and returns via Telehealth visit today for CPAP therapy 2 month pressure change follow-up. CPAP Compliance Data - Data Reviewed with Patient Average duration of nightly device use: 3 hr 2 min Compliance rate %: 28.3 (60 days) Current pressure setting (cmH2O): 9-12 Humidity settin Heated hose settin Average residual AHI: 15 Average large leak: 15 min 12 sec Subjective Missed days of use due to: reports: mask issues (taking mask off at night, not getting good fit) Patient concerns: reports: mask discomfort, mask leak noise, dry mouth, nose, throat (dry mouth), other. denies: aerophagia, air blowing in eyes, condensation in mask/hose, nasal congestion, epistaxis Observed to snore while using device: No Current pressure setting perceived as: too high On therapy, patient: reports: sleeping better, awakening more refreshed, being more awake and alert during the day, more rested overall. denies: drowsiness while driving Initial [place] Sleepiness Scale score: 7 (in 2006) Current [place] Sleepiness Scale score: 7 Allergies and Home Medications Home medication list reviewed: Yes (no new meds) Review of Systems Review of systems same as previous: Yes (no changes) Physical Exam Vital signs obtained and entered by: Telehealth visit to reduce exposure during Covid pandemic Height: 5 ft 1 in Impression and Plan 1. Obstructive Sleep Apnea-Hypopnea Syndrome, very severe, with poor treatment compliance and fair apnea control with elevated residual AHI. On CPAP therapy, the patient has better sleep quality and is more rested overall. She feels as if the pressure is too high and would like it reduced. The patients pressure will be changed to autoCPAP 8-10 cmH20. Patient has good results when she uses the CPAP machine with significant reduction of her AHI. Patient advised to contact me if pressure change is uncomfortable so that it can be adjusted. Goals for apnea control discussed. Patient has had issues with her mask, changed to a nasal pillows mask which seems to help a little bit but is still uncomfortable and she is finding her mask off of her in the middle of the night. She is going to work with the DME supplier to see if she can try a different mask when eligible. Patient's apnea severity and rationale for treatment to reduce apnea, improve sleep quality and reduce cardiovascular and cerebrovascular events was reviewed. I also reviewed the benefit of consistent device use of CPAP for hypertension, cardiac disease, cerebrovascular disease, and gastric reflux. * Change auto CPAP pressure to 8-10 cmH2O * Notify me if snoring with mask or feeling that the pressure is too much or too little * Attempt to lose weight * Call this office if any problems using CPAP * Return for follow up in 1-2 months, or sooner if concerns arise Counseling Topics: Spare mask, Weight loss health impact Visit Type: Telehealth Video Video Type: DEEDEEee Patient Location: Home Location of Provider: Office Patient agrees and consents to this telehealth visit type: Yes Patient agrees to have their insurance billed: Yes Time Spent with Patient (minutes): 20 Provider Statement: I spent 100% of the Telehealth Video Call with the patient with greater than 50% spent counseling the patient and coordination of care.
== END 2021-05-31 13:16 | disposition home or self-care (01) ==
LOC: SC 13:15
PROVIDERS: ATTEND Nurse Practitioner Family
DX: G47.33 Obstructive sleep apnea (adult) (pediatric) (principal)

== ENCOUNTER 2021-06-25 18:53 | Outpatient (CLI) | payer MEDICARE, OTHER | END 2021-06-25 18:54 | disposition critical access hospital (66) | LOC: EMS 18:53 | DX: S89.91XA Unspecified injury of right lower leg, initial encounter (principal); W20.8XXA Other cause of strike by thrown, projected or falling object, initial encounter; W18.30XA Fall on same level, unspecified, initial encounter; Y92.008 Other place in unspecified non-institutional (private) residence as the place of occurrence of the external cause | CPT/HCPCS: A0425; A0427 ==

== ENCOUNTER 2021-06-25 18:59 | Emergency (ER) | payer MEDICARE, OTHER ==
[2021-06-25] MEDS ORDERED: HYDROmorphone 1 MG/ML CARPUJECT IVP STA ×3 (19:17→22:04)
[2021-06-25] MEDS ORDERED: ONDANSETRON 4 MG/2 ML VIAL IVP STA (19:17)
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
[2021-06-25 19:31] LABS: BASOPHILS # (AUTO) 0.1 10^3/uL (0.0-0.1); EOSINOPHILS # (AUTO) 0.3 10^3/uL (0.0-0.7); EOSINOPHILS % (AUTO) 4.2 %; HCT - HEMATOCRIT 39.7 % (37.0-47.0); HGB - HEMOGLOBIN 12.5 g/dL (12.0-16.0); LYMPHOCYTES # (AUTO) 1.6 10^3/uL (1.5-3.5); LYMPHOCYTES % (AUTO) 26.5 %; MEAN CORPUSCULAR HEMOGLOBIN 29.6 pg (27.0-31.0); MEAN CORPUSCULAR HGB CONC 31.5 g/dL (32.0-36.0); MEAN CORPUSCULAR VOLUME 93.9 fL (81.0-99.0); MONOCYTES # (AUTO) 0.5 10^3/uL (0.0-1.0); MONOCYTES % (AUTO) 8.5 %; NEUTROPHILS # (AUTO) 3.6 10^3/uL (1.5-6.6); NEUTROPHILS % (AUTO) 59.5 %; PLT - PLATELET COUNT 178 10^3/uL (130-450); RED BLOOD COUNT 4.23 10^6/uL (4.20-5.40); RED CELL DISTRIBUTION WIDTH 13.8 % (12.0-15.0)
[2021-06-25 19:36] LABS: INR 2.7 (0.8-1.2); PT - PROTHROMBIN TIME 27.8 secs (9.9-12.6)
[2021-06-25 19:39] LABS: CALCIUM 9.7 mg/dL (8.5-10.3); CREATININE 1.4 mg/dL (0.4-1.0); POTASSIUM 4.3 mmol/L (3.5-5.0)
--- NOTE | 2021-06-25 20:23 | XRAY Report ---
PROCEDURE: Knee 3 View RT INDICATIONS: knee inj TECHNIQUE: 3 views of the right knee(s) were acquired. COMPARISON: None. FINDINGS: Bones: A prior total knee arthroplasty has been performed and also a long medullary praveen is present cr ossing to the distal metadiaphyseal junction where transverse cortical screw establishes transverse a lignment. There is a fracture that appears located just above the screw margin, relatively poorly see n due to light film technique, and yet the definite acute trauma finding.. No suspicious bony lesion s. Soft tissues: No joint effusion. No suspicious soft tissue calcifications. IMPRESSION: Distal femoral fracture in the setting of long medullary praveen placement with transverse d istal cortical screw fixation in addition to separate operative intervention of right total knee arth roplasty. The fracture appears acute, and yet only mildly malaligned. CT scanning may be warranted fo r more accurate assessment. Reviewed by: Jus Rowland MD on 06/25/2021 8:22 PM PDT Approved by: Jus Rowland MD on 06/25/2021 8:22 PM PDT Station ID: [id number]
[2021-06-25 21:20] LABS: CORONAVIRUS 229E-RESP PCR NOT DETECTED; CORONAVIRUS HKU1-RESP PCR NOT DETECTED; CORONAVIRUS NL63-RESP PCR NOT DETECTED; CORONAVIRUS OC43-RESP PCR NOT DETECTED; HUMAN METAPNEUMOVIRUS NOT DETECTED; INFLUENZA A- RESP PCR PANEL NOT DETECTED; RHINOVIRUS/ENTEROVIRUS NOT DETECTED; SARS-CoV-2 -RESP PCR PANEL NOT DETECTED
[2021-06-25 21:21] LABS: B. PARAPERTUSSIS- RESP PCR PAN NOT DETECTED; B. PERTUSSIS- RESP PCR PANEL NOT DETECTED; C. PNEUMONIAE- RESP PCR PANEL NOT DETECTED; INFLUENZA B - RESP PCR PANEL NOT DETECTED; M. PNEUMONIAE- RESP PCR PANEL NOT DETECTED; PARAINFLUENZA VIRUS 1 NOT DETECTED; PARAINFLUENZA VIRUS 2 NOT DETECTED; PARAINFLUENZA VIRUS 3 NOT DETECTED; PARAINFLUENZA VIRUS 4 NOT DETECTED; RSV- RESP PCR PANEL NOT DETECTED
[2021-06-25 23:10] VITALS: BP 136/80
== END 2021-06-25 22:36 | disposition short-term general hospital (02) ==
LOC: EDUNIT# → EDSEX → ED 18:59
DX: S72.401A Unspecified fracture of lower end of right femur, initial encounter for closed fracture (principal); W20.8XXA Other cause of strike by thrown, projected or falling object, initial encounter; W18.39XA Other fall on same level, initial encounter; Y93.89 Activity, other specified; Y92.009 Unspecified place in unspecified non-institutional (private) residence as the place of occurrence of the external cause; I48.91 Unspecified atrial fibrillation; G47.33 Obstructive sleep apnea (adult) (pediatric); Z96.651 Presence of right artificial knee joint; Z79.01 Long term (current) use of anticoagulants; Z20.822 Contact with and (suspected) exposure to COVID-19
CPT/HCPCS: 36415; 73562; 80048; 85025; 85610; 87631; 96374; 96375; 96376; 99283; 99285; J1170; 0202U

== ENCOUNTER 2021-06-25 22:40 | Outpatient (CLI) | payer MEDICARE, OTHER | END 2021-06-25 22:41 | disposition short-term general hospital (02) | LOC: EMS 22:40 | PROVIDERS: ATTEND Emergency Medicine | DX: S72.90XA Unspecified fracture of unspecified femur, initial encounter for closed fracture (principal); W18.30XA Fall on same level, unspecified, initial encounter | CPT/HCPCS: A0425; A0426 ==

== ENCOUNTER 2021-09-09 10:32 | Outpatient (CLI) | payer MEDICARE, OTHER | END 2021-09-09 10:33 | disposition EMS.NT | LOC: EMS 10:32 | DX: R07.9 Chest pain, unspecified (principal) ==